=== PATIENT | female | born 1955 | race Caucasian/White ===

== ENCOUNTER → 2018-01-10 12:08 | Outpatient (CLI) | payer OTHER, SELFPAY ==
[2018-01-10 13:40] LABS: Hematocrit 36.3 % (37-47); Hemoglobin 11.2 g/dl (12.0-15.0); Mean Corp Hgb Conc 30.9 g/gl (32-36); Mean Corpuscular Hgb 24.6 pg (27.0-32.0); Mean Corpuscular Volume 79.6 fL (81-99); Mean Platelet Vol. 8.9 fl (6.2-12.0); Platelet Count 356 K/mm3 (150-450); RBC Distribution Width CV 16.6 % (11.6-14.6); RBC Distribution Width SD 47.6 fl (35.1-43.9); Red Blood Count 4.56 M/mm3 (4.2-5.4); White Blood Count 8.6 K/mm3 (4.4-11.0)
[2018-01-10 13:58] LABS: Scan Indicated on CBC? Y/N NO
== END ==
PROVIDERS: Physician Assistant Medical; Family Provider Family Medicine; PCP Family Medicine; Visit Provider Internal Medicine Cardiovascular Disease
DX: R07.9 Chest pain, unspecified (principal)
CPT/HCPCS: 36415; 85027

== ENCOUNTER → 2018-11-29 08:57 | Outpatient (CLI) | payer SELFPAY, OTHER ==
[2018-10-16 15:20] VITALS: BMI 23.1
--- NOTE | 2018-11-29 09:08 | BI_ITS ---
MAMMOGRAPHY - BILATERAL SCREENING REASON FOR EXAM: Female, 63 years old. Routine annual screening examination. PERTINENT HISTORY: Mother with breast cancer. TECHNIQUE: Digital bilateral breast naomy (3D mammographic acquisition) in the CC and MLO projections. 2-D mediolateral oblique (MLO) and craniocaudad (CC) views of both breasts were obtained. CAD: Full Field Digital Mammography with Computer Added Detection was performed. COMPARISON: Comparison is made with prior outside examination dated October 02, 2017 and September 03, 2014. FINDINGS: Breast Composition: The breasts are heterogeneously dense, which may obscure small masses. There are no dominant masses or suspicious calcifications. No other significant abnormalities are identified. There has been no significant change since the prior study. BI/SCREENING MAMM (CAD), BILAT IMPRESSION: Stable bilateral screening mammogram. Yearly follow-up mammogram recommended. (A) ASSESSMENT CATEGORY: BIRADS Category 1: Negative. A letter regarding these results will be sent to the patient by the facility within 30 days. Approximately 10% of breast cancers are not detected by mammography. A normal mammogram should not delay biopsy of a clinically suspicious abnormality. [id number] Electronically Signed: He Smith MD at 14:06 EST Tel [phone], Service support ,
== END ==
PROVIDERS: Family Provider Family Medicine; PCP Family Medicine; Visit Provider Obstetrics & Gynecology
DX: Z12.31 Encounter for screening mammogram for malignant neoplasm of breast (principal)
CPT/HCPCS: 77063; 77067

== ENCOUNTER → 2018-12-05 08:15 | Outpatient (CLI) | payer SELFPAY ==
[2018-10-16 15:20] VITALS: BMI 23.1
[2018-12-05 09:14] LABS: BUN 14 mg/dL (7-18); Creatinine, Serum 0.82 mg/dL (0.55-1.02); EST Glomerular Filtration Rate 75 mL/min (>60); Glucose 95 mg/dL (74-106)
[2018-12-05 09:15] LABS: Anion Gap 8 (5-15); BUN/Creat Ratio 17.1 RATIO (10-20); Calcium,Total 8.8 mg/dL (8.5-10.1); Chloride 105 mmol/L (98-107); Cholesterol 177 mg/dL (200); Est Glom Filt Rate - Afr Amer 91 mL/min (>60); High Density Lipoprotein 57 mg/dL; Potassium 3.7 mmol/L (3.5-5.1); Sodium Level 138 mmol/L (136-145); Thyroid Stim Hormone (TSH) 1.93 uIU/mL (0.358-3.74); Triglycerides 193 mg/dL; Very Low Density Lipoprotein 39 mg/dL (5-40)
[2018-12-05 11:03] LABS: Vitamin D,25 Hydroxy 35.8 ng/mL (29.95-100.01)
--- OUTSIDE RECORDS SUMMARY | 2019-02-08 15:16 | XMS RPT_ITS ---
:1955 Author Organization OHIP Support Name Relationship Address Phone R Unavailable Unavailable Unavailable DAGMAR MADRID Unavailable [address] + [place] [address] R Unavailable Unavailable Unavailable DGAMAR MADRID Unavailable [address] + [place] [address] R Unavailable Unavailable Unavailable DAGMAR MADRID Unavailable [address] + [place] [address] BUEMI Unavailable [address] + [place] [address] DAGMAR MADRID Unavailable [address] + [place] [address] BUEMI Unavailable [address] + [place] [address] DAGMAR MADRID Unavailable [address] [phone] [place] [address] BUEMI Unavailable [address] + [place] [address] DAGMAR MADRID Unavailable [address] [phone] [place] [address] BUEMI Unavailable [address] + [place] [address] KANE MADRIDN Unavailable [address] [phone] [place] [address] BUEMI Unavailable [address] + [place] [address] BUEMI Unavailable [address] + [place] [address] DAGMAR MADRID Unavailable [address] [phone] [place] [address] BUEMI Unavailable [address] + [place] [address] RALPH NOVOA Unavailable [address] + [place] [address] KANE MADRIDN Unavailable [address] [phone] [place] [address] Care Team Providers Name Role Phone SNOW ARAGON Attending Unavailable Snow Lehman Attending Unavailable Win, Kwan Primary Care Unavailable Win, Kwan Attending Unavailable Win, Kwan Referring Unavailable Win, Kwan Primary Care Unavailable Win, Kwan Attending Unavailable Win, Kwan Referring Unavailable Win, Kwan Primary Care Unavailable Jeremy, Sanford Attending Unavailable Win, Kwan Primary Care Unavailable Jeremy, Sanford Referring Unavailable Nurse, Standard Attending Unavailable Win, Kwan Referring Unavailable Win, Kwan Primary Care Unavailable Junaid Gibbs Attending Unavailable Win, Kwan Referring Unavailable Win, Kwan Primary Care Unavailable Alina Viera Attending Unavailable Mando Boyle Attending Unavailable Jeremy, Sanford Attending Unavailable Win, Kwan Referring Unavailable PROBLEMS PROBLEMS DATE TYPE CONDITION / CODE ATTENDING STATUS SOURCE 12/05/2018 Unknown Z00.00 - Encounter Kwan Win Active [place] for general adult [facility] examination Repository without abnormal findings / Z00.00(ICD-10) 10/16/2018 Unknown R00.2 - Sanford Luna Active [place] Palpitations / Community R00.2(ICD-10) Hospital Repository 07/10/2018 Active Unknown / SHAKEEL Active [facility]Unknown[facility] 02/07/2018 Unknown R07.9 - Chest Nurse, Standard Active [place] pain, unspecified Community / R07.9(ICD-10) Hospital Repository PROCEDURES PROCEDURES No Procedure Records FoundRESULTS RESULTS DEXA BONE DENSITY Observed: 12/09/2018 Status: F Source: [place] STUDY 9:12 AM [facility] REPOSITORY [facility] Imaging Services [address] [place] [address] Dexa Bone Density Study MR#: [id number] Acct: [id number] Name: DALIA MADRID Rep #: [id number] : 1955 F 63 From: He Smith MD PCP: Kwan Win MD Status: REG CLI Study: Dexa Bone Density Study Date of Exam: 12/09/18 Exam# [id number] Ordering Dr: Kwan Win MD STUDY: DUAL ENERGY X-RAY ABSORPTIOMETRY / DXA REASON FOR EXAM: Female, 63 years old. The patient is postmenopausal. Loss of height. TECHNIQUE: Bone Mineral Density (BMD) measurements of lumbar spine and bilateral hips were obtained. COMPARISON: None. FINDINGS: Lumbar Spine (L1-L4): g/cm2 (0.927) / T-score (-2.1) / Z-score (-0.8) Findings are suggestive of osteopenia with a high fracture risk. Left Femur Total: g/cm2 (0.873) / T-score (-1.1) / Z- score (0.1) Left Femoral Neck: g/cm2 (0.801) / T-score (-1.7) / Z- score (-0.4) Right Femur Total: g/cm2 (0.884) / T-score (-1.0) / Z- score (0.0) Right Femoral Neck: g/cm2 (0.853) / T-score (-1.3) / Z-score (-0.1) BD/Dexa Bone Density Study IMPRESSION: The patient is considered osteopenic as outlined below according to World Mo Organization (WHO) criteria with a moderate fracture risk. Reference Information: The T-score is the number of standard deviations above or below the standard which is normal for young adults at their peak bone mineral density. The World Health Organization (WHO) interprets the T-scores as follows: Above -1 Normal bone density Between -1 and -2.5 Osteopenia Equal to / or below -2.5 Osteoporosis As a practical clinical guideline, osteopenia may be graded as follows: Mild -1 through -1.5 Moderate -1.6 through -2.0 Severe -2.1 through -2.4 The Z-score is the number of standard deviations above or below age-matched controls. A Z-score of less than -1.5 would be considered abnormal. References: 1. NIH Osteoporosis and Related Bone Diseases http://www.osteo.org 2. International Society for Clinical Densitometry http://www.iscd.org 3. National Osteoporosis Foundation http://www.nof.org Electronically Signed: He Smith MD at 11:20 EST Tel [phone], Service support , CC: Kwan Win MD Gizzard Peeler: Signed BASIC METABOLIC Collected: 12/05/2018 Status: F Source: [place] PROFILE (BMP) 8:20 AM [facility] REPOSITORY TYPE CODE TESTS RESULT OUT OF RANGE REFERENCE UNITS LAB L501.0100 74-106 mg/dL Normal GLU 95 Result Comment: Please note revised GLUCOSE reference range effective 2017. LAB L501.1000 7-18 mg/dL Normal BUN 14 LAB L501.1100 0.55-1.02 mg/dL Normal CREAT,SERUM 0.82 Result Comment: The validity of the calculated GFR AND GFRAA in patients over 70 years has not been determined. Clinical correlation is essential. LAB L501.1110 >60 mL/min Normal EST GFR 75 Result Comment: Non- GFR Calc LAB L501.1115 >60 mL/min Normal EST GFR - AA 91 Result Comment: GFR Calc LAB L501.1300 10-20 RATIO Normal BUN/CRE 17.1 LAB L501.2200 8.5-10.1 mg/dL CA Normal 8.8 LAB L501.5300 136-145 mmol/L NA Normal 138 LAB L501.5600 3.5-5.1 mmol/L K Normal 3.7 LAB L501.5900 98-107 mmol/L CL Normal 105 LAB L501.6100 21.0-32.0 mmol/L Normal CO2 25.0 LAB L501.6200 5-15 Normal GAP 8 Performed By: #### L500.2500, L500.4100, L501.9520 #### [facility] [address] [place], [address] LIPID PROFILE Collected: 12/05/2018 Status: F Source: [place] 8:20 AM [facility] REPOSITORY TYPE CODE TESTS RESULT OUT OF RANGE REFERENCE UNITS LAB L501.4900 200 mg/dL Normal CHOL 177 Result Comment: <200 mg/dL Desirable 200-240 mg/dL Borderline >240 mg/dL High Risk LAB L501.5000 mg/dL Normal TRIG 193 Result Comment: The drugs N-Acetylcysteine and Metamizole may falsely depress this assay. Serum Triglycerides Reference Interval Normal <150 mg/dL Borderline high 150 - 199 mg/dL High 200 - 499 mg/dL Very High > or = 500 mg/dL LAB L501.6400 mg/dL Normal HDL 57 Result Comment: The drugs N-Acetylcysteine and Metamizole may falsely depress this assay. Reference Range HDL <40 mg/dL Low HDL Cholesterol HDL >or= 60 mg/dL High HDL Cholesterol LAB L501.6500 0-130 mg/dL Normal LDL 81 LAB L501.6600 5-40 mg/dL Normal VLDL 39 Performed By: #### L500.2500, L500.4100, L501.9520 #### [facility] [address] [place], [address] THYROID STIM HORMONE Collected: 12/05/2018 Status: F Source: [place] (TSH) 8:20 AM [facility] REPOSITORY TYPE CODE TESTS RESULT OUT OF RANGE REFERENCE UNITS LAB L501.9520 0.358-3.74 uIU/mL Normal TSH 1.93 Performed By: #### L500.2500, L500.4100, L501.9520 #### [facility] [address] [place], [address] VITAMIN D,25 HYDROXY Collected: 12/05/2018 Status: F Source: [place] 8:20 AM [facility] REPOSITORY TYPE CODE TESTS RESULT OUT OF RANGE REFERENCE UNITS LAB L506.1000 29.95-100.01 ng/mL Normal Vitamin D 35.8 25-OH Result Comment: Vitamin D 25(OH) Status Range Deficiency <20 ng/mL (50nmol/L) Insuffciency 20 - 30 ng/mL (50 - 75 nmol/L) Sufficiency 30 - 100 ng/mL (75 - 250 nmol/L) Toxicity >100 ng/mL (>250 nmol/L) Performed By: #### L506.1000 #### [facility] [address] [place], [address] SCREENING MAMM (CAD), Observed: 11/29/2018 Status: F Source: [place] BILAT 9:08 AM [facility] REPOSITORY [facility] Imaging Services [address] [place] [address] SCREENING MAMM (CAD), BILAT MR#: [id number] Acct: [id number] Name: DALIA MADRID Rep #: [id number] : 1955 F 63 From: He Smith MD PCP: Kwan Win MD Status: REG CLI Study: SCREENING MAMM (CAD), BILAT Date of Exam: 11/29/18 Exam# [id number] Ordering Dr: Snow Neal MD MAMMOGRAPHY - BILATERAL SCREENING REASON FOR EXAM: Female, 63 years old. Routine annual screening examination. PERTINENT HISTORY: Mother with breast cancer. TECHNIQUE: Digital bilateral breast naomy (3D mammographic acquisition) in the CC and MLO projections. 2-D mediolateral oblique (MLO) and craniocaudad (CC) views of both breasts were obtained. CAD: Full Field Digital Mammography with Computer Added Detection was performed. COMPARISON: Comparison is made with prior outside examination dated October 02, 2017 and September 03, 2014. FINDINGS: Breast Composition: The breasts are heterogeneously dense, which may obscure small masses. There are no dominant masses or suspicious calcifications. No other significant abnormalities are identified. There has been no significant change since the prior study. BI/SCREENING MAMM (CAD), BILAT IMPRESSION: Stable bilateral screening mammogram. Yearly follow-up mammogram recommended. (A) ASSESSMENT CATEGORY: BIRADS Category 1: Negative. A letter regarding these results will be sent to the patient by the facility within 30 days. Approximately 10% of breast cancers are not detected by mammography. A normal mammogram should not delay biopsy of a clinically suspicious abnormality. [id number] Electronically Signed: He Smith MD at 14:06 EST Tel [phone], Service support , CC: Snow Lehman MD; Kwan Win MD Gizzard Peeler: Signed CARDIOLOGY VISIT Observed: 10/16/2018 Status: F Source: [place] REPORT 3:35 PM [facility] REPOSITORY [facility] [address] [place] [address] OFFICE VISIT Date of Service: 10/16/18 MR#: [id number] Acct: [id number] Name: DALIA MADRID Rep #: [id number] : 1955 Provider: Sanford Luna MD Age/Sex: 62/F Location: [facility] Status: Signed HPI HPI Chief Complaint: Follow up Details: DALIA MADRID, is a 62 F who presents to the office today for a follow-up visit. She is a lady with a history of hypertension palpitations and no significant obstructive coronary disease. She had a negative stress echocardiogram as well as a normal left ventricular systolic function. She tells me that she has been recently diagnosed with irritable bowel syndrome and has had to alter her diet significantly. She has had no neck arm or jaw discomfort suggest angina. Her physical exam here today demonstrates clear lung woods regular rate and rhythm and no pedal edema. Intake Vital Signs10/16/18 Height 5 ft 5 in 10/16/18 Weight: 139 lb 10/16/18 Body Mass Index (BMI) 23.1 10/16/18 Blood Pressure 128/84 H 10/16/18 Blood Pressure Location Lt brachial Intake Visit Reasons: 6 M FU Director Of Math Required: No Accompanied by: NONE Is patient in pain?: No Allergies Sulfa (Sulfonamide Antibiotics) Allergy (Verified 10/16/18 15:21) Unknown sulfamethoxazole [From Bactrim] Allergy (Verified 10/16/18 15:21) Unknown trimethoprim [From Bactrim] Allergy (Verified 10/16/18 15:21) Unknown erythromycin base Adverse Reaction (Severe, Verified 10/16/18 15:21) Unknown Medications Albuterol IH (ProAir) [Proair Hfa] 2 puff INHALATION Q6H PRN PRN 10/20/13 [History Confirmed 10/16/18] Dulera 100 Mcg/5 Mcg Inhaler 1 puff INHALATION BID 10/20/13 [History Confirmed 10/16/18] Homopathic Drops 1 drp PO DAILY 08/16/17 [History Confirmed 10/16/18] Ibuprofen [Motrin] 400 mg PO Q6H PRN PRN 08/16/17 [History Confirmed 10/16/18] Sodium Chloride [Saline Nasal Mist] 126 ml NS BID 08/16/17 [History Confirmed 10/16/18] Usana 5 tab PO BID 08/16/17 [History Confirmed 10/16/18] famotidine 40 mg tablet 40 mg PO QDAY #30 tab 05/30/18 [Rx Confirmed 10/16/18] Lactobacillus #2-Bifidobacter #1-S. therm 112.5 billion cell capsule 1 cap PO DAILY 10/16/18 [History Confirmed 10/16/18] PFSH Medical History Irritable bowel (Chronic) H/O: hysterectomy (Resolved) Palpitations (Chronic) Chest pain (Acute) Syncope and collapse (Acute) Surgical History History of nasal surgery (Resolved) Family History Father CAD (coronary artery disease) Mother CAD (coronary artery disease) Hx CABG Atrial fibrillation Social History Smoking Status: Never smoker alcohol intake: never substance use type: does not use caffeine: Yes Type: coffee Number of servings: 2 what type of physical activity do you participate in: walking frequency: 3-4 times per week duration: 15-30 minutes/day seatbelt use: always do you feel safe at home: Yes ROS Const Const: Negative for fatigue, weakness, night sweats, excessive sweating, frequent falls, headache(s) or daytime sleepiness Eyes Eyes: Negative for loss of peripheral vision, transient loss of vision, blind spots, double vision or blurry vision ENT ENT: Negative for headache(s), dizziness, balance problems, Nosebleed/epistaxis, tongue swelling or lip swelling Cardio Chest Pain: No Palpitations: No Edema: None Muscle aches with walking: None Resp Respiratory: Negative for SOB at rest, SOB orthopnea\SOB lying down, Cough, paroxysmal nocturnal dyspnea or SOB with activity GI GI: Negative nausea, vomiting, heartburn, black,tarry stools or bright, red blood in stools : Negative for hematuria Musc Musc: Negative for balance problems, muscle aches/ myalgia, muscle weakness or joint pain Skin Skin: Negative non-healing lesions, unusual bruising or rash Neuro Neuro: Negative for weakness, frequent falls, headache(s), double vision, dizziness, lightheadedness, orthostatic symptoms, blurry vision or lack of coordination Otis Hematologic/Lymphatic: Negative for easy bruising or easy bleeding Endo Endo: Negative for fatigue, excessive sweating, cold intolerance, heat intolerance, increased thirst/drinking or hair loss Psych Psych: Negative for anxiety or depression Allergy Allergy/Immunology: Negative for throat swelling, Negative for tongue swelling, Negative for hives, Negative for rash, Negative for lip swelling Cardiology Exam Const Appearance: cooperative, healthy appearing, well developed, well groomed and no acute distress Nutritional Appearance: well nourished and average body habitus Orientation: alert, awake and oriented x3 Head Head: normal to inspection, normocephalic and atraumatic Ears: hearing grossly normal bilaterally and external ears normal Nose: external nose normal, nasal mucous membranes and turbinates normal, nares normal, septum normal, no nasal discharge Face and Sinus: face symmetric Mouth: oral mucosae normal, tongue normal, oropharynx normal and moist mucous membranes Teeth and gingiva: dentition normal Throat: posterior oropharynx normal, tonsils normal and uvula midline Eyes General: appearance normal, both eyes and all related structures Eyelids: eyelids normal Conjunctivae: conjunctivae normal Pupils: PERRL, normal by confrontation and accommodation normal EOM: EOM intact bilaterally Neck Neck: normal visual inspection, trachea midline and no JVD JVD: +5 Carotids: normal carotid upstroke and bounding pulses Chest Chest inspection: normal inspection of the chest, symmetric chest movement and normal respiratory effort Auscultation: Bilateral: Clear to Auscultation Cardio Palpation: normal PMI Rate: regular rate Rhythm: regular rhythm Heart sounds: S1 normal, S2 normal and normal, physiologic split S2; negative rub, gallop or murmur GI GI: normal to inspection, soft, no hepatosplenomegaly and bowel sounds present Neuro General: alert, awake, oriented x3, no focal sensory deficit, gait normal and moves all extremities Skin Skin: no rashes or lesions noted Extremities Pulses: Normal: Right Femoral Pulse, Left Femoral Pulse, Right Dorsalis Pedis Pulse, Left Dorsalis Pedis Pulse, Right Posterior Tibial Pulse, Left Posterior Tibial Pulse, Right Radial Pulse, Left Radial Pulse Lower Extremity Edema: None: Bilateral Musculoskel Musculoskeletal: No joint tenderness Psych Psychological: normal affect Assessment AND Plan 1. Palpitations R00.2 Plan She does have a history of palpitations which appears to be much better now. You do remember that she was bereaved but she appears to be handling that much better now. At this time I will recommend that we see how on an as-needed basis. Plan Detail Other Medications New: Follow Up prn Coding Level of Care Code Off vis,est,level 3 Diagnoses Palpitations R00.2 Coding Level of Care Code Off vis,est,level 3 Diagnoses Palpitations R00.2 10/16/18 1535 <Electronically signed by Sanford Luna MD> Date Sanford Luna MD Cosigner Signature: Date (if applicable) CC: Kwan Win MD CNOV Observed: 07/10/2018 Status: COMPLETED Source: [place] 11:20 AM [facility] RE[facility] Office Visit (WOOB) DALIA MADRID ([id number]) 1955 F Date Time Provider Department 07/10/18 11:20 AM SNOW ARAGON During your visit today, we recorded the following information about you: Blood pressure Weight 120/60 64.4 kg Snow Lehman MD 07/10/2018 1:10 PM Signed Table Top Tile Setter offered: Patient declines. Dalia Madrid is a 62 year old female who presents for vaginal concerns. Reports had intercourse for the first time since having hysterectomy 08/2017- pt reports after felt pressure, pain, and had two spot of blood. Pt reports mild dysuria but no other symptoms. Pt reports itching on external vagina. PAST MEDICAL HISTORY Diagnosis Date - Asthma PAST SURGICAL HISTORY Procedure Laterality Date - COLONOSCOPY - CYSTOSCOPY 08/22/2017 - PAST SURGICAL HISTORY OF nasal surgery - REMOVAL OF OVARY/TUBE(S) Bilateral 08/22/2017 Salpingo-oophorectomy - REMOVAL OF TONSILS,<12 Y/O Tonsillectomy - VAGINAL HYSTERECTOMY 08/22/2017 [facility] FAMILY HISTORY Problem Relation Age of Onset - Heart Mother valve replacement - Breast Cancer Paternal Grandmother Social History Marital status: Spouse name: Dagmar Years of education: 12 Number of children: 1 Occupational History Occupation Employer Comment [employer] Social History Main Topics Smoking status: Never Smoker Smokeless tobacco: Never Used Alcohol use: No Drug use: No Sexual activity: Yes Partners with: Male Current Outpatient Prescriptions: ibuprofen (MOTRIN) 600 mg tablet Take 1 tablet by mouth every 6 hours as needed. FOR PAIN. CALCIUM CARBONATE/MAG CARB (MAGNEBIND 200 ORAL) Take by mouth. ibuprofen (MOTRIN) 600 mg tablet Take 1 tablet by mouth every 6 hours as needed for Pain. (Patient not taking: Reported on 09/04/2017) oxyCODONE-acetaminophen (PERCOCET) 5-325 mg tablet Take 1 tablet by mouth every 4 hours as needed for Pain. (Patient not taking: Reported on 09/04/2017) simethicone, chewable (MYLICON) 80 mg chewable tablet Take 1 tablet by mouth every 6 hours as needed. (Patient not taking: Reported on 09/04/2017) nortriptyline (PAMELOR) 10 mg capsule Take 10 mg by mouth daily at bedtime. aspirin, enteric coated (ASPIRIN, ENTERIC COATED) 81 mg EC tablet Take 81 mg by mouth once daily. No current facility-administered medications for this visit. Allergies As of Date: 07/10/2018 Allergen Noted Reaction SULFA (SULFONAMIDE ANTIBIOTICS) 04/27/2015 Unknown Fully Assessed 10/02/2017 REVIEW OF SYSTEMS Abdomen: no pain Bladder: No gross hematuria, urinary frequency, urinary urgency, or incontinence.. Expanded ROS: GENERAL: No weight loss, malaise or fevers Allergies and current medication updated:Yes EXAM: BP 120/60 Wt 142 lb (64.4kg) GENERAL: pleasant, female in no apparent distress HEENT: Normocephalic and atraumatic NECK: full range of motion DERMATOLOGY: Normal and without lesions ABDOMEN: soft, non-tender and no masses PELVIC: external genitalia normal, normal Bartholin's glands, urethra, [place]'s glands, no vulvar lesions, good vaginal support, physiologic discharge present, normal appearing perineal body and perianal region, cervix surgically absent, atrophic changes NEURO: alert and oriented x3,exam grossly non-focal EXTREMITIES: normal ASSESSMENT AND PLAN: Encounter Diagnosis ICD-10-CM 1. Dysuria R30.0 UA DIP B/O 2. Postmenopausal atrophic vaginitis N95.2 3. Vaginal irritation N89.8 4. Lotrisone PRN for external irritation 5. Vulvar hygiene reviewed, vaginal lubricants reviewed 6. F/u as scheduled Snow Lehman MD Referring Provider: SELF [200] Allergies As of Date: 07/10/2018 Noted Allergy Reaction SULFA (SULFONAMIDE ANTIBIOTICS) 04/27/2015 16 - Unknown Date Reviewed: 07/10/2018 Reviewed by: Berenice Linares Ma - Fully Assessed Reason for Visit: Vaginal Bleeding [203] Primary Visit Diagnosis:Postmenopausal atrophic vaginitis [N95.2] Other Visit Diagnoses:Dysuria [R30.0] Vaginal irritation [N89.8] Order(s):clotrimazole-betamethasone (LOTRISONE) creamApply 1 application to affected area twice daily.Disp: 15 gRfl: 0 UA DIP B/O [[id number]] Order #: [id number] Prescriptions as of 07/10/2018 Sig: CLOTRIMAZOLE-BETAMETHASONE 1 * Apply 1 application to affect* IBUPROFEN 600 MG TABLET Take 1 tablet by mouth every * MAGNEBIND 200 ORAL Take by mouth. IBUPROFEN 600 MG TABLET Take 1 tablet by mouth every * Patient not taking: Reported on 09/04/2017 OXYCODONE-ACETAMINOPHEN 5 MG-* Take 1 tablet by mouth every * Patient not taking: Reported on 09/04/2017 SIMETHICONE 80 MG CHEWABLE TA* Take 1 tablet by mouth every * Patient not taking: Reported on 09/04/2017 NORTRIPTYLINE 10 MG CAPSULE Take 10 mg by mouth daily at * ASPIRIN 81 MG TABLET,DELAYED * Take 81 mg by mouth once justine* Problem List As Of Date 07/10/2018 Noted Resolved Cervical abrasion [S37.69XA] INVALID FOR* Prescriptions ordered this encounter Disp Refills Start End CLOTRIMAZOLE-BETAMETHASONE 1 %-0.05 * 15 g 0 07/10/2018 Route: TOPICAL Sig: Apply 1 application to affected area twice daily. Encounter Status:Closed by SNOW JIMENEZ MD on 07/10/18 PROGRESS Observed: 07/10/2018 Status: COMPLETED Source: [place] 11:15 AM [facility] REPOSITORY [facility]NO ID: [id number] Author: Snow Jimenez Service: (none) Author Type: Physician Type: Progress Notes Filed: 07/10/2018 1:10 PM Note Text: Table Top Tile Setter offered: Patient declines. Dalia Madrid is a 62 year old female who presents for vaginal concerns. Reports had intercourse for the first time since having hysterectomy 08/2017- pt reports after felt pressure, pain, and had two spot of blood. Pt reports mild dysuria but no other symptoms. Pt reports itching on external vagina. PAST MEDICAL HISTORY Diagnosis Date - Asthma PAST SURGICAL HISTORY Procedure Laterality Date - COLONOSCOPY - CYSTOSCOPY 08/22/2017 - PAST SURGICAL HISTORY OF nasal surgery - REMOVAL OF OVARY/TUBE(S) Bilateral 08/22/2017 Salpingo-oophorectomy - REMOVAL OF TONSILS,<12 Y/O Tonsillectomy - VAGINAL HYSTERECTOMY 08/22/2017 [facility] FAMILY HISTORY Problem Relation Age of Onset - Heart Mother valve replacement - Breast Cancer Paternal Grandmother Social History Marital status: Spouse name: Dagmar Years of education: 12 Number of children: 1 Occupational History Occupation Employer Comment [employer] Social History Main Topics Smoking status: Never Smoker Smokeless tobacco: Never Used Alcohol use: No Drug use: No Sexual activity: Yes Partners with: Male Current Outpatient Prescriptions: ibuprofen (MOTRIN) 600 mg tablet Take 1 tablet by mouth every 6 hours as needed. FOR PAIN. CALCIUM CARBONATE/MAG CARB (MAGNEBIND 200 ORAL) Take by mouth. ibuprofen (MOTRIN) 600 mg tablet Take 1 tablet by mouth every 6 hours as needed for Pain. (Patient not taking: Reported on 09/04/2017) oxyCODONE-acetaminophen (PERCOCET) 5-325 mg tablet Take 1 tablet by mouth every 4 hours as needed for Pain. (Patient not taking: Reported on 09/04/2017) simethicone, chewable (MYLICON) 80 mg chewable tablet Take 1 tablet by mouth every 6 hours as needed. (Patient not taking: Reported on 09/04/2017) nortriptyline (PAMELOR) 10 mg capsule Take 10 mg by mouth daily at bedtime. aspirin, enteric coated (ASPIRIN, ENTERIC COATED) 81 mg EC tablet Take 81 mg by mouth once daily. No current facility-administered medications for this visit. Allergies As of Date: 07/10/2018 Allergen Noted Reaction SULFA (SULFONAMIDE ANTIBIOTICS) 04/27/2015 Unknown Fully Assessed 10/02/2017 REVIEW OF SYSTEMS Abdomen: no pain Bladder: No gross hematuria, urinary frequency, urinary urgency, or incontinence.. Expanded ROS: GENERAL: No weight loss, malaise or fevers Allergies and current medication updated:Yes EXAM: BP 120/60 Wt 142 lb (64.4kg) GENERAL: pleasant, female in no apparent distress HEENT: Normocephalic and atraumatic NECK: full range of motion DERMATOLOGY: Normal and without lesions ABDOMEN: soft, non-tender and no masses PELVIC: external genitalia normal, normal Bartholin's glands, urethra, [place]'s glands, no vulvar lesions, good vaginal support, physiologic discharge present, normal appearing perineal body and perianal region, cervix surgically absent, atrophic changes NEURO: alert and oriented x3,exam grossly non-focal EXTREMITIES: normal ASSESSMENT AND PLAN: Encounter Diagnosis ICD-10-CM 1. Dysuria R30.0 UA DIP B/O 2. Postmenopausal atrophic vaginitis N95.2 3. Vaginal irritation N89.8 4. Lotrisone PRN for external irritation 5. Vulvar hygiene reviewed, vaginal lubricants reviewed 6. F/u as scheduled Snow Lehman MD CARDIOLOGY VISIT Observed: 02/27/2018 Status: F Source: [place] REPORT 1:36 PM [facility] RE[facility]IT[facility] [address] [place] [address] OFFICE VISIT Date of Service: 02/27/18 MR#: [id number] Acct: [id number] Name: DALIA MADRID Rep #: [id number] : 1955 Provider: GERMANIA Gibbs Age/Sex: 62/F Location: [facility] Status: Signed HPI HPI Details: DALIA MADRID, is a 62 F who presents to the office today for a cardiovascular outpatient follow-up. She has a previous history of palpitations, vasovagal syncope in January 2015 and April 2017, and atypical chest discomfort. After last office visit she underwent a stress echocardiogram, which showed a normal LV systolic function was negative for myocardial ischemia. Patient contact our office in December 2017 with atypical signs of chest pain. She underwent laboratory work and EKG. She was started on antacid medication after this. Pt. states her mom prior to episode of atypical chest pain in December. She will be retiring soon. Pt. denies chest, left arm, jaw, or neck discomfort. Her exercise tolerance is stable. Pt. denies symptoms of CHF, palpitations, lightheadedness, dizziness, near syncope, or syncopal episodes. Pt. denies edema or claudication issues. Pt. denies orthopnea, PND, fever, chills, blood in urine, blood in stool, myalgia, or unexplainable fatigue. She will be undergoing a sleep study per Dr. Caruso. Intake Vital Signs02/27/18 Height 5 ft 5 in 02/27/18 Weight: 139 lb 02/27/18 Body Mass Index (BMI) 23.1 02/27/18 Blood Pressure 138/84 Intake Visit Reasons: overdue for f/up Allergies Sulfa (Sulfonamide Antibiotics) Allergy (Verified 02/27/18 09:51) Unknown sulfamethoxazole [From Bactrim] Allergy (Verified 02/27/18 09:51) Unknown trimethoprim [From Bactrim] Allergy (Verified 02/27/18 09:51) Unknown erythromycin base Adverse Reaction (Severe, Verified 02/27/18 09:51) Unknown Medications Albuterol IH (ProAir) [Proair Hfa] 2 puff INHALATION Q6H PRN PRN 10/20/13 [History Confirmed 02/27/18] Dulera 100 Mcg/5 Mcg Inhaler 1 puff INHALATION BID 10/20/13 [History Confirmed 02/27/18] Homopathic Drops 1 drp PO DAILY 08/16/17 [History Confirmed 02/27/18] Ibuprofen [Motrin] 400 mg PO Q6H PRN PRN 08/16/17 [History Confirmed 02/27/18] Nortriptyline HCl [Pamelor] 10 mg PO QHS 08/16/17 [History Confirmed 02/27/18] Sodium Chloride [Saline Nasal Mist] 126 ml NS BID 08/16/17 [History Confirmed 02/27/18] Usana 5 tab PO BID 08/16/17 [History Confirmed 02/27/18] famotidine 40 mg tablet 40 mg PO QDAY #30 tab 01/10/18 [Rx Confirmed 02/27/18] PFSH Medical History Palpitations (Chronic) Chest pain (Acute) Syncope and collapse (Acute) Surgical History History of nasal surgery (Resolved) H/O: hysterectomy (Resolved) Family History Father CAD (coronary artery disease) Mother CAD (coronary artery disease) Hx CABG Atrial fibrillation Social History Smoking Status: Never smoker alcohol intake: never substance use type: does not use caffeine: Yes Type: coffee Number of servings: 2 what type of physical activity do you participate in: walking frequency: 3-4 times per week duration: 15-30 minutes/day seatbelt use: always do you feel safe at home: Yes ROS Const Const: Negative for fatigue, weakness, body ache, fever(s) or chills ENT ENT: Negative for dizziness Cardio Chest Pain: No Palpitations: No Edema: None Muscle aches with walking: None Resp Respiratory: Negative for SOB with activity, SOB at rest, SOB orthopnea\SOB lying down or paroxysmal nocturnal dyspnea GI GI: Negative nausea, black,tarry stools, bright, red blood in stools or vomiting blood/hematemesis : Negative for hematuria or frequent nighttime urination/ nocturia Musc Musc: Negative for muscle aches/ myalgia Neuro Neuro: Negative for weakness, dizziness, lightheadedness, near syncope, syncope or orthostatic symptoms Endo Endo: Negative for fatigue Cardiology Exam Const Appearance: cooperative, healthy appearing, comfortable and no acute distress Orientation: alert, awake and oriented x3 Head Head: normal to inspection Mouth: oral mucosae normal Neck Neck: no JVD and normal visual inspection Carotids: normal carotid upstroke Chest Chest inspection: normal inspection of the chest and normal respiratory effort Auscultation: Bilateral: Clear to Auscultation Cardio Rate: regular rate Rhythm: regular rhythm Heart sounds: S1 normal and S2 normal; negative rub or gallop GI GI: normal to inspection Neuro General: alert, awake, oriented x3 and CN's II-XI intact bilaterally Skin Skin: no rashes or lesions noted Extremities Pulses: Normal: Right Posterior Tibial Pulse, Left Posterior Tibial Pulse, Right Radial Pulse, Left Radial Pulse Lower Extremity Edema: None: Bilateral Psych Psychological: normal affect Supplemental Info Stress echocardiogram from October 2016 showed a peak exercise, upsloping ST changes which do not meet criteria for ischemia at 87% of MPHR and 10.1 MET S, no arrhythmia, no clinical angina noted, and ejection fraction increased from 55-65%. Echocardiogram from October 2016 showed estimated ejection fraction 50%, mild tricuspid valve insufficiency, and RVSP of 26 mmHg. Holter monitor from January 2016 showed average heart rate of 92 bpm, minimum heart rate is 66 bpm, and maximum heart rate 130 bpm, no ventricular tachycardia noted,no atrial fibrillation noted, and patient's symptoms of palpitations and dizziness did not correlate with scan. Assessment AND Plan 1. Palpitations R00.2 Plan - SHIV Aragon There has not been any recurrence of this. We will continue to monitor this. 2. Syncope and collapse R55 Plan - SHIV Aragon There has not been any recurrence of this. Previous episodes of syncope appear to be vasovagal related. She was reminded to remain hydrated, avoid standing in one spot for long periods, and consider wearing compression stockings. She is agreeable to compression stockings. We will continue to monitor this. 3. Atypical chest pain R07.89 Plan - SHIV Aragon Stress echocardiogram from October 2016 was negative for stress-induced myocardial ischemia and showed a preserved ejection fraction. Patient denies any chest pain. She states that since initiating Pepcid her symptoms resolved. She was instructed to contact our office if symptoms change. We will continue to monitor this. 4. Non-rheumatic tricuspid valve insufficiency I36.1 Plan - SHIV Araogn Echocardiogram from October 2016 showed mild tricuspid valve insufficiency with an RVSP of 26 mmHg. Patient denies any shortness of breath or activity intolerance. We will continue to monitor this through history, exam, and repeat echocardiogram as needed. Plan Detail Additional Comments - SHIV Aragon Discussed the above patient with Dr. Luna, he agrees with the plan of care. Thank you for allowing us to participate in the patients plan of care, if you have any questions please do not hesitate to call. This note was generated using a voice recognition system and there may be incorrect words, spelling or punctuation that were not noted when reviewing the office note prior to saving. 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) Coding Level of Care Code Off vis,est,level 3 Diagnoses Palpitations R00.2 Syncope and collapse R55 Atypical chest pain R07.89 Non-rheumatic tricuspid valve insufficiency I36.1 Coding Level of Care Code Off vis,est,level 3 Diagnoses Palpitations R00.2 Syncope and collapse R55 Atypical chest pain R07.89 Non-rheumatic tricuspid valve insufficiency I36.1 02/27/18 1146 <Electronically signed by Junaid CHANEY> Date Junaid CHANEY 02/27/18 1336<Electronically signed by Sanford Luna MD> Cosigner Signature: Date (if applicable) Sanford Luna MD CC: Kwan Win MD OFFICE VISIT REPORT Observed: 01/13/2018 Status: F Source: [place] 2:00 PM [place] [id number] [id number] OFFICE VISIT Date of Service: 01/10/18 MR#: [id number] Acct: [id number] Patient: DALIA MADRID Rep #: [id number] : 1955 Provider: Sulema Nurse RN Age/Sex: 62/F Location: [facility] Status: Signed Intake Intake Visit Reasons: Chest pain Allergies Sulfa (Sulfonamide Antibiotics) Allergy (Verified 08/16/17 15:27) Unknown sulfamethoxazole [From Bactrim] Allergy (Verified 08/16/17 15:27) Unknown trimethoprim [From Bactrim] Allergy (Verified 08/16/17 15:27) Unknown Medications Albuterol IH (ProAir) [Proair Hfa] 2 puff INHALATION Q6H PRN PRN 10/20/13 [History Confirmed 08/16/17] Dulera 100 Mcg/5 Mcg Inhaler 1 puff INHALATION BID 10/20/13 [History Confirmed 08/16/17] Multivitamins,Ther W-Minerals [Multivitamin With Minerals] 1 tab PO DAILY 10/20/13 [History Confirmed 08/16/17] Aspirin [Aspirin EC] 81 mg PO DAILY 08/16/17 [History Confirmed 08/16/17] Homopathic Drops 1 drop PO DAILY 08/16/17 [History Confirmed 08/16/17] Ibuprofen [Motrin] 400 mg PO Q6H PRN PRN 08/16/17 [History Confirmed 08/16/17] Nortriptyline HCl [Pamelor] 10 mg PO QHS 08/16/17 [History Confirmed 08/16/17] Sodium Chloride [Saline Nasal Mist] 126 ml NS BID 08/16/17 [History Confirmed 08/16/17] Usana 5 tab PO BID 08/16/17 [History Confirmed 08/16/17] famotidine 40 mg tablet 40 mg PO QDAY #30 tab 01/10/18 [Rx] Assessment AND Plan 1. Chest pain R07.9 Orders Orders: Nursing Note Patient here for ekg: sinus tach, rate 104. Eliz compared with ekg done in April 2017, looks the same. HGB today 11.2 today and labs and ekg being sent to Dr. Win. Pt notified to start Pepcid 40 mg po tonight, RX was sent to [facility]. 01/13/18 1400 <Electronically signed by Eliz AHUJA> Date Eliz AHJUA Cosigner Signature: Date (if applicable) CC: Mayuri Latif CBC-COMPLETE BLOOD CNT Collected: 01/10/2018 Status: F Source: [place] NO DIFF 1:22 PM [facility] REPOSITORY TYPE CODE TESTS RESULT OUT OF RANGE REFERENCE UNITS LAB L100.1000 4.4-11.0 K/mm3 Normal WBC 8.6 LAB L100.1200 4.2-5.4 M/mm3 Normal RBC 4.56 LAB L100.1300 12.0-15.0 g/dl Low HGB 11.2 LAB L100.1400 37-47 % Low HCT 36.3 LAB L100.1500 81-99 fL Low MCV 79.6 LAB L100.1600 27.0-32.0 pg Low MCH 24.6 LAB L100.1700 32-36 g/gl Low MCHC 30.9 LAB L100.1810 11.6-14.6 % High RDW CV 16.6 LAB L100.1820 35.1-43.9 fl High RDW SD 47.6 LAB L100.1900 150-450 K/mm3 Normal PLT 356 LAB L100.2000 6.2-12.0 fl Normal MPV 8.9 Performed By: #### L100.0500 #### [facility] [address], [address] ALLERGIES ALLERGIES DATE TYPE / CODE NAME / CODE REACTION SEVERITY SOURCE 10/16/2018 Drug Sulfa (Sulfonamide Unknown Unknown [facility]/416 Antibiotics)/E59113 Community 542880[facility] 10/16/2018 Drug erythromycin Unknown SV [facility]/416 base/[id number](RXN Community 835925([facility] ED CT) Repository 10/16/2018 Drug sulfamethoxazole/F0 Unknown Unknown [facility]/416 45892380(RXNORM) Community 911876([facility] ED CT) Repository 10/16/2018 Drug trimethoprim/N58941 Unknown Unknown [facility]/416 2873(RXNORM) Community 699022([facility] ED CT) Repository 04/27/2015 Drug SULFA (SULFONAMIDE UNKNOWN [facility] Class/71587 ANTIBIOTICS) Main [place] 1003(SNOMED Repository CT) ENCOUNTERS ENCOUNTERS ADMIT/DISCHARGE ACCOUNT ADMITTING ENCOUNTER LOCATION SOURCE NUMBER CLASS 12/09/2018 [id number] Ambulatory [facility] ing:OPBD Repository 12/05/2018 [id number] [facility] ing:LAB Repository 11/29/2018 [id number] [facility] ing:OPBI Repository 10/16/2018/10/16/20 [id number] Ambulatory BMSBuilding:B [place] 18 [facility] Hospital Repository 07/10/2018/07/11/20 [id number] Ambulatory [address] Repository 02/27/2018/02/28/20 [id number] Ambulatory BMSBuilding:B [place] [facility] Hospital Repository 02/25/2018 [id number] Ambulatory BMSBuilding:B [place] MS.[facility] Hospital Repository 02/25/2018 [id number] Ambulatory [facility] Hospital Repository 01/10/2018/01/10/20 [id number] Ambulatory BMSBuilding:B [place] [facility] Hospital Repository 01/10/2018 [id number] [facility] ing:MTLAB Repository PAYERS PAYERS ENCOUNTER GUARANTOR PAYER SUBSCRIBER SOURCE 12/09/2018 DALIA Jose Primary Insurance:[facility] DALIA E [place] [id number] PACKAGE PLANPolicy [facility]ONAUERDOB: [facility], [facility]: [id number] [address]His: [id number] Repository Date:2018-12-03 (HP) 12/09/2018 Secondary NOT GIVENUNK [place] Insurance:SELF PAY [facility] Number: Effective Repository Date:2018-12-03 12/05/2018 DALIA E Primary NOT GIVENUNK [place] [id number] Insurance:SELF PAY [facility] [place] [address]Npy: Number: Effective Repository Date:2018-12-05 (HP) 11/29/2018 DALIA E Primary Insurance:[facility] DALIA E [place] [id number] PACKAGE PLANPolicy SCHONAUERDOB: [facility], Number: [id number] [facility] [address]Rbt: [id number] Repository Date:2018-10-07 (HP) 11/29/2018 Secondary DALIA E [place] Insurance:RELIGIOUS SCHONAUERDOB: [id number] Repository Number: [id number] Date: [place], [place] [address]PB: 11/29/2018 Tertiary NOT GIVENUNK [place] Insurance:SELF PAY [facility] Number: Effective Repository Date:2018-10-07 10/16/2018 DALIA E Primary NOT GIVENUNK [place] [id number] Insurance:SELF PAY [place] Number: Effective Repository [id number]: (330) Date:2018-10-16 [phone] () 02/27/2018 DALIA E Primary DALIA E [place] [id number] Insurance:MEDICAL SCHONAUERDOB: [facility] [id number] Number: Repository [address]Oan: [id number] [phone] Date:[id number] [address]UQ: 02/27/2018 Secondary NOT GIVENUNK [place] Insurance:SELF PAY [facility] Number: Effective Repository Date:2018-01-10 02/25/2018 DALIA E Primary DALIA E [place] [id number] Insurance:MEDICAL SCHONAUERDOB: [facility] [id number] Number: Repository [address]Xai: [id number] [phone] Date:[id number] () [address] [place] [phone]: 02/25/2018 Secondary NOT GIVENUNK [place] Insurance:SELF PAY [facility] Number: Effective Repository Date:2018-02-25 02/25/2018 DALIA E Primary DALIA E [place] [id number] Insurance:MEDICAL SCHONAUERDOB: [facility] [id number] Number: Repository [id number]: [id number] [phone] Date:[id number] () [address] [place] [id number]: 02/25/2018 Secondary NOT GIVENUNK [place] Insurance:SELF PAY [facility] Number: Effective Repository Date:2018-02-25 01/10/2018 DALIA E Primary DALIA E [place] [id number] Insurance:MEDICAL SCHONAUERDOB: [facility] [id number] Number: Repository [id number]: [id number] [phone] Date:[id number] () [address] [place] [id number]: 01/10/2018 Secondary NOT GIVENUNK [place] Insurance:SELF PAY [facility] Number: Effective Repository Date:2018-01-10 01/10/2018 DALIA E Primary DALIA E [place] [id number] Insurance:[facility]ICAL [facility] [id number] Number: Repository [id number]: [id number] [phone] Date:[id number] (ZH) [address] [address]VJ: 01/10/2018 Secondary NOT GIVENVIPUL Banda Insurance:SELF PAY [facility] Number: Effective Repository Date:2018-01-10
== END ==
PROVIDERS: Family Provider Family Medicine; PCP Family Medicine; Referring Provider Family Medicine; Visit Provider Family Medicine
DX: Z00.00 Encounter for general adult medical examination without abnormal findings (principal)
CPT/HCPCS: 36415; 80048; 80061; 82306; 84443

== ENCOUNTER → 2018-12-09 09:03 | Outpatient (CLI) | payer SELFPAY ==
[2018-10-16 15:20] VITALS: BMI 23.1
--- NOTE | 2018-12-09 09:15 | BD_ITS ---
STUDY: DUAL ENERGY X-RAY ABSORPTIOMETRY / DXA REASON FOR EXAM: Female, 63 years old. The patient is postmenopausal. Loss of height. TECHNIQUE: Bone Mineral Density (BMD) measurements of lumbar spine and bilateral hips were obtained. COMPARISON: None. FINDINGS: Lumbar Spine (L1-L4): g/cm2 (0.927) / T-score (-2.1) / Z-score (-0.8) Findings are suggestive of osteopenia with a high fracture risk. Left Femur Total: g/cm2 (0.873) / T-score (-1.1) / Z-score (0.1) Left Femoral Neck: g/cm2 (0.801) / T-score (-1.7) / Z-score (-0.4) Right Femur Total: g/cm2 (0.884) / T-score (-1.0) / Z-score (0.0) Right Femoral Neck: g/cm2 (0.853) / T-score (-1.3) / Z-score (-0.1) BD/Dexa Bone Density Study IMPRESSION: The patient is considered osteopenic as outlined below according to World Mo Organization (WHO) criteria with a moderate fracture risk. Reference Information: The T-score is the number of standard deviations above or below the standard which is normal for young adults at their peak bone mineral density. The World Health Organization (WHO) interprets the T-scores as follows: Above -1 Normal bone density Between -1 and -2.5 Osteopenia Equal to / or below -2.5 Osteoporosis As a practical clinical guideline, osteopenia may be graded as follows: Mild -1 through -1.5 Moderate -1.6 through -2.0 Severe -2.1 through -2.4 The Z-score is the number of standard deviations above or below age-matched controls. A Z-score of less than -1.5 would be considered abnormal. References: 1. NIH Osteoporosis and Related Bone Diseases http://www.osteo.org 2. International Society for Clinical Densitometry http://www.iscd.org 3. National Osteoporosis Foundation http://www.nof.org Electronically Signed: He Smith MD at 11:20 EST Tel [phone], Service support ,
--- OUTSIDE RECORDS SUMMARY | 2019-02-10 09:31 | XMS RPT_ITS ---
:1955 Author Organization OHIP Support Name Relationship Address Phone R Unavailable Unavailable Unavailable DAGMAR MADRID Unavailable [address] + [place] [address] R Unavailable Unavailable Unavailable DAGMAR MADRID Unavailable [address] + [place] [address] R Unavailable Unavailable Unavailable DAGMAR MADRID Unavailable [address] + [place] [address] BUEMI Unavailable [address] + [place] [address] DAGMAR MADRID Unavailable [address] + [place] [address] BUEMI Unavailable [address] + [place] [address] DAGMAR MADRID Unavailable [address] [phone] [place] [address] BUEMI Unavailable [address] + [place] [address] DAGMAR MADRID Unavailable [address] [phone] [place] [address] BUEMI Unavailable [address] + [place] [address] KANE MADRIDN Unavailable [address] [phone] [place] [address] BUEMI Unavailable [address] + [place] [address] BUEMI Unavailable [address] + [place] [address] DAGMAR MADRID Unavailable [address] [phone] [place] [address] BUEMI Unavailable [address] + [place] [address] RALPH NOVOA Unavailable [address] + [place] [address] KANE MADRIDN Unavailable [address] [phone] [place] [address] Care Team Providers Name Role Phone SNOW ARAGON Attending Unavailable Snow Lehman Attending Unavailable Win, Kwan Primary Care Unavailable Win, Kwan Attending Unavailable Win, Kwan Referring Unavailable Win, Kwan Primary Care Unavailable Win, Kwan Attending Unavailable Win, Kwan Referring Unavailable Win, Kwan Primary Care Unavailable Jeremy, Sanford Attending Unavailable Win, Wkan Primary Care Unavailable Jeremy, Sanford Referring Unavailable [...] Unknown Z00.00 - Encounter Kwan Win Active [place] for general adult [facility] examination Repository without abnormal findings / Z00.00(ICD-10) 10/16/2018 Unknown R00.2 - Sanford Luna Active [place] [facility] / Community R00.2(ICD-10) Hospital Repository 07/10/2018 Active Unknown / SHAKEEL [facility] 02/07/2018 Unknown R07.9 - Chest Nurse, Standard Active [place] pain, unspecified Community / R07.9(ICD-10) Hospital Repository PROCEDURES PROCEDURES No Procedure Records FoundRESULTS RESULTS DEXA BONE DENSITY Observed: 12/09/2018 Status: F Source: [place] STUDY 9:12 AM [facility] HOSPITAL REPOSITORY [facility] Imaging Services [address] [place] [address] Dexa Bone Density Study MR#: [id number] Acct: [id number] Name: DALIA MADRID Rep #: [id number] : 1955 F 63 From: He Smith MD PCP: Kwan Win MD Status: REG CLI Study: Dexa Bone Density Study Date of Exam: 12/09/18 Exam# [id number] Ordering Dr: Kwan Win MD STUDY: DUAL [...] He Smith MD at 11:20 EST Tel [phone], Service support , CC: Kwan Win MD Instructional Coordinator: Signed BASIC METABOLIC Collected: 12/05/2018 Status: F Source: [place] PROFILE (BMP) 8:20 AM [facility] REPOSITORY TYPE CODE TESTS RESULT OUT OF [...] Performed By: #### L500.2500, L500.4100, L501.9520 #### [facility] [address] [place], [address] LIPID PROFILE Collected: 12/05/2018 Status: F Source: [place] 8:20 AM [facility] REPOSITORY TYPE CODE TESTS RESULT OUT OF [...] Performed By: #### L500.2500, L500.4100, L501.9520 #### [facility] [address] [place], [address] THYROID STIM HORMONE Collected: 12/05/2018 Status: F Source: [place] (TSH) 8:20 AM [facility] REPOSITORY TYPE CODE TESTS RESULT OUT OF RANGE REFERENCE UNITS LAB L501.9520 0.358-3.74 uIU/mL Normal TSH 1.93 Performed By: #### L500.2500, L500.4100, L501.9520 #### [facility] [address] [place] [place], [address] VITAMIN D,25 HYDROXY Collected: 12/05/2018 Status: F Source: [place] 8:20 AM [facility] REPOSITORY TYPE CODE TESTS RESULT OUT OF RANGE REFERENCE UNITS LAB L506.1000 29.95-100.01 ng/mL Normal Vitamin D 35.8 25-OH Result Comment: Vitamin D 25(OH) Status Range Deficiency <20 ng/mL (50nmol/L) Insuffciency 20 - 30 ng/mL (50 - 75 nmol/L) Sufficiency 30 - 100 ng/mL (75 - 250 nmol/L) Toxicity >100 ng/mL (>250 nmol/L) Performed By: #### L506.1000 #### [facility] [address] [place], [address] SCREENING MAMM (CAD), Observed: 11/29/2018 Status: F Source: [place] BILAT 9:08 AM [facility] REPOSITORY [facility] Imaging Services [address] [place] [address] SCREENING MAMM (CAD), BILAT MR#: [id number] Acct: [id number] Name: DALIA MADRID Rep #: [id number] : 1955 F 63 From: He Smith MD PCP: Kwan Win MD Status: REG CLI Study: SCREENING MAMM (CAD), BILAT Date of Exam: 11/29/18 Exam# [id number] Ordering Dr: Snow Neal MD MAMMOGRAPHY - [...] delay biopsy of a clinically suspicious abnormality. [id number] Electronically Signed: He Smith MD at 14:06 EST Tel [phone], Service support , CC: Snow Lehman MD; Kwan Win MD Instructional Coordinator: Signed CARDIOLOGY VISIT Observed: 10/16/2018 Status: F Source: [place] REPORT 3:35 PM [facility] REPOSITORY [facility] 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 Dalia Madrid is a [...] children: 1 Occupational History Occupation Employer Comment [employer] Social History Main Topics Smoking status: Never [...] external genitalia normal, normal Bartholin's glands, urethra, [place]'s glands, no vulvar lesions, good vaginal support, [...] daily.Disp: 15 gRfl: 0 UA DIP B/O [[id number]] Order #: [id number] Prescriptions as of 07/10/2018 Sig: CLOTRIMAZOLE-BETAMETHASONE 1 [...] 07/10/18 PROGRESS Observed: 07/10/2018 Status: COMPLETED Source: [place] 11:15 AM [facility] REPOSITORY HNO ID: [id number] Author: Snow Jimenez Service: (none) Author Type: Physician Type: Progress Notes Filed: 07/10/2018 1:10 PM Note Text: Pneumatic Tube Operator offered: Patient declines. 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 [place] [address] OFFICE VISIT Date of Service: 02/27/18 MR#: [id number] Acct: [id number] Name: DALIA MADRID Rep #: [id number] : 1955 Provider: GERMANIA Gibbs Age/Sex: 62/F Location[place] [facility] Status: Signed HPI HPI Details: DALIA MADRID, [...] tricuspid valve insufficiency I36.1 Plan - SHIV Aragon Echocardiogram from October 2016 showed mild tricuspid [...] prior to saving. 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) Coding Level of Care Code Off vis,est,level [...] 01/13/2018 Status: F Source: [place] 2:00 PM [place] [address] [address] OFFICE VISIT Date of Service: 01/10/18 MR#: [id number] Acct: [id number] Patient: DALIA MADRID Rep #: [id number] : 1955 Provider: Sulema Nurse RN Age/Sex: 62/F Location: [facility] Status: Signed Intake Intake Visit Reasons: Chest [...] <Electronically signed by Eliz AHUJA> Date Eliz AHUJA Cosigner Signature: Date (if applicable) CC: Mayuri Latif CBC-COMPLETE BLOOD CNT Collected: 01/10/2018 Status: F Source: [place] NO DIFF 1:22 PM [facility] REPOSITORY TYPE CODE TESTS RESULT OUT OF [...] MPV 8.9 Performed By: #### L100.0500 #### [facility] [address] [place], [address] ALLERGIES ALLERGIES DATE TYPE / CODE NAME / CODE REACTION SEVERITY SOURCE 10/16/2018 Drug Sulfa (Sulfonamide Unknown Unknown [place] Allergy/416 Antibiotics)/P91661 Community 861098([facility] Rep[facility] 10/16/2018 Drug erythromycin Unknown SV [place] Allergy/416 base/[id number](RXN Community 671036([facility] ED CT) Repository 10/16/2018 Drug sulfamethoxazole/F0 Unknown Unknown [place] Allergy/416 71095540(RXNORM) Community 140736([facility] ED CT) Repository 10/16/2018 Drug trimethoprim/L53906 Unknown Unknown [place] Allergy/416 2873(RXNORM) Community 176735([facility] ED CT) Repository 04/27/2015 Drug SULFA (SULFONAMIDE UNKNOWN [facility] Class/30234 ANTIBIOTICS) Main Munith 1003(SNOMED Repository CT) ENCOUNTERS ENCOUNTERS ADMIT/DISCHARGE ACCOUNT ADMITTING ENCOUNTER LOCATION SOURCE NUMBER CLASS 12/09/2018 [id number] [facility] ing:OPBD Repository 12/05/2018 [id number] [facility] ing:LAB Repository 11/29/2018 [id number] [facility] ing:OPBI Repository 10/16/2018/10/16/20 [id number] Ambulatory BMSBuilding:B [place] 18 [facility] Hospital Repository 07/10/2018/07/11/20 [id number] Ambulatory [address] Repository 02/27/2018/02/28/20 [id number] Ambulatory BMSBuilding:B [place] 18 [facility] Hospital Repository 02/25/2018 [id number] Ambulatory BMSBuilding:B [place] [facility] Hospital Repository 02/25/2018 [id number] Ambulatory [facility] Hospital Repository 01/10/2018/01/10/20 [id number] Ambulatory BMSBuilding:B [place] 18 [facility] Hospital Repository 01/10/2018 [id number] [facility] ing:MTLAB Repository PAYERS PAYERS ENCOUNTER GUARANTOR PAYER SUBSCRIBER SOURCE 12/09/2018 DALIA Jose Primary Insurance:[facility] DALIA E [place] [id number] PACKAGE PLANPolicy SCHONAUERDOB: [facility], Number: [id number] [address]Qmb: [id number] Repository Date:2018-12-03 (HP) 12/09/2018 Secondary NOT GIVENUNK [place] Insurance:SELF PAY [facility] Number: Effective Repository Date:2018-12-03 12/05/2018 DALIA E Primary NOT GIVENUNK [place] [id number] Insurance:SELF PAY [facility] [place] [address]Suz: Number: Effective Repository Date:2018-12-05 (HP) 11/29/2018 DALIA E Primary Insurance:[facility] DALIA E [place] [id number] PACKAGE PLANPolicy SCHONAUERDOB: [facility], Number: [id number] City [facility] [address]Obi: [id number] Repository Date:2018-10-07 (HP) 11/29/2018 Secondary DALIA E [place] Insurance:ORTHODOXY SCHONAUERDOB: [id number] Repository Number: [id number] Date: [place], [place] [address]UY: 11/29/2018 Tertiary NOT GIVENUNK [place] Insurance:SELF PAY [facility] Number: Effective Repository Date:2018-10-07 10/16/2018 DALIA E Primary NOT GIVENUNK [place] [id number] Insurance:SELF PAY [place] Number: Effective Repository [id number]: (330) Date:2018-10-16 [phone] () 02/27/2018 DALIA E Primary DALIA E [place] [id number] Insurance:MEDICAL SCHONAUERDOB: [facility] 1230-54-09YZHLos [place] Number: Repository [id number]: [id number] [phone] Date:7067-42-52[address] [address], [place] [address]KV: 02/27/2018 Secondary NOT GIVENUNK [place] Insurance:SELF PAY [facility] Number: Effective Repository Date:2018-01-10 02/25/2018 DALIA E Primary DALIA E [place] [id number] Insurance:MEDICAL SCHONAUERDOB: [facility] [id number] [place] Number: Repository [id number]: [id number] [phone] Date:9600-91-42FL [address] () [address] [place] [phone]: 02/25/2018 Secondary NOT GIVENUNK [place] Insurance:SELF PAY [facility] Number: Effective Repository Date:2018-02-25 02/25/2018 DALIA E Primary DALIA E [place] [id number] Insurance:MEDICAL SCHONAUERDOB: [facility] [id number] [place] Number: Repository [address]Ioa: [id number] [phone] Date:7405-78-63GP [address] () [address] [place] [phone]: 02/25/2018 Secondary NOT GIVENUNK [place] Insurance:SELF PAY [facility] Number: Effective Repository Date:2018-02-25 01/10/2018 DALIA E Primary DALIA E [place] [id number] Insurance:MEDICAL SCHONAUERDOB: [facility] 0365-04-18OTYLos [place], [place] Number: Repository [id number]: [id number] [phone] Date:8007-62-97VC [address] () [address] [place] [id number]: 01/10/2018 Secondary NOT GIVENUNK [place] Insurance:SELF PAY [facility] Number: Effective Repository Date:2018-01-10 01/10/2018 DALIA E Primary DALIA E [place] [id number] Insurance:MEDICAL COMMUNITY HEALTHONAUERDOB: [facility] [id number] [place] Number: Repository [id number]: [id number] [phone] Date:9688-85-41MN [address] ([address]) [address], [place] [address]OE: 01/10/2018 Secondary NOT GIVENVIPUL [place] Insurance:SELF PAY [facility] Number: Effective Repository Date:2018-01-10
== END ==
PROVIDERS: Family Provider Family Medicine; PCP Family Medicine; Referring Provider Family Medicine; Visit Provider Family Medicine
DX: Z00.00 Encounter for general adult medical examination without abnormal findings (principal); Z78.0 Asymptomatic menopausal state; M85.80 Other specified disorders of bone density and structure, unspecified site
CPT/HCPCS: 77080

== ENCOUNTER → 2019-02-05 09:59 | Outpatient (CLI) | payer SELFPAY ==
[2018-10-16 15:20] VITALS: BMI 23.1
--- NOTE | 2019-02-05 10:04 | ART_ITS ---
Reason For Study: numbness and tingling Left Segmental Pressures Left brachial= 128mmHg. Left posterior tibial artery = 161mmHg. Left dorsalis pedis artery = 166mmHg. The left dorsalis pedis waveforms are triphasic. The left posterior tibial artery waveforms are triphasic. Right Segmental Pressures Right brachial= 125mmHg. Right posterior tibial artery = 163mmHg. Right dorsalis pedis artery = 154mmHg. The right dorsalis pedis waveforms are triphasic. The right posterior tibial artery waveforms are triphasic. Indices The right ankle brachial index by the dorsalis pedis is 1.2. The right ankle brachial index by the posterior tibial artery is 1.27. The right ankle brachial index by the posterior tibial artery post exercise is 1.26. The left ankle brachial index by the dorsalis pedis is 1.30. The left ankle brachial index by the posterior tibial artery is 1.26. The left dorsalis pedis index post exercise is 1.26. Interpretation Summary Triphasic Doppler waveforms are noted at ankle level bilaterally. Resting ankle-brachial indices are normal bilaterally. Following a 5 minute period of ambulation, which was tolerated well and without complaints, ankle pressures augmented bilaterally, which is a normal physiological response. There is no evidence of significant arterial occlusive disease in the lower extremities bilaterally. Ordering Physician: Kwan Win Performed By: LORNA THURMAN RVT
== END ==
PROVIDERS: Family Provider Family Medicine; PCP Family Medicine; Referring Provider Family Medicine; Visit Provider Family Medicine
DX: R20.0 Anesthesia of skin (principal); R20.2 Paresthesia of skin
CPT/HCPCS: 93922

== ENCOUNTER → 2019-04-30 13:52 | Outpatient (CLI) | payer SELFPAY ==
[2018-10-16 15:20] VITALS: BMI 23.1
== END ==
PROVIDERS: Family Provider Family Medicine; PCP Family Medicine; Referring Provider Physician Assistant Medical; Visit Provider Physician Assistant Medical
DX: R00.2 Palpitations (principal)
CPT/HCPCS: 93225; 93226

== ENCOUNTER → 2019-11-12 15:14 | Outpatient (CLI) | payer SELFPAY ==
[2019-11-12 13:48] VITALS: BMI 23.6
== END ==
PROVIDERS: Family Provider Family Medicine; PCP Family Medicine; Referring Provider Nurse Practitioner Women's Health; Visit Provider Nurse Practitioner Women's Health
DX: N81.6 Rectocele (principal); N76.0 Acute vaginitis
CPT/HCPCS: 87070; 87205

== ENCOUNTER → 2020-01-01 08:20 | Outpatient (CLI) | payer SELFPAY ==
[2019-11-12 13:48] VITALS: BMI 23.6
--- NOTE | 2020-01-01 08:36 | BI_ITS ---
MAMMOGRAPHY - BILATERAL SCREENING REASON FOR EXAM: Female, 64 years old. Routine annual screening examination. PERTINENT HISTORY: Mother with breast cancer. TECHNIQUE: Digital bilateral breast carson (3D mammographic acquisition) in the CC and MLO projections. 2-D mediolateral oblique (MLO) and craniocaudad (CC) views of both breasts were obtained. CAD: Full Field Digital Mammography with Computer Added Detection was performed. COMPARISON: Comparison is made with prior examination dated November 29, 2018 and September 03, 2014. FINDINGS: Breast Composition: There are scattered areas of fibroglandular density. There are no dominant masses or suspicious calcifications. No other significant abnormalities are identified. There has been no significant change since the prior study. BI/SCREEN MAMM (CAD) W/CARSON BILAT IMPRESSION: Stable bilateral screening mammogram. Yearly follow-up mammogram recommended. (A) ASSESSMENT CATEGORY: BIRADS Category 1: Negative. A letter regarding these results will be sent to the patient by the facility within 30 days. Approximately 10% of breast cancers are not detected by mammography. A normal mammogram should not delay biopsy of a clinically suspicious abnormality. [id number] Electronically Signed: He Smith, at 10:11 EST , Service support ,
== END ==
PROVIDERS: Family Provider Family Medicine; PCP Family Medicine; Referring Provider Obstetrics & Gynecology; Visit Provider Obstetrics & Gynecology
DX: Z12.31 Encounter for screening mammogram for malignant neoplasm of breast (principal); Z80.3 Family history of malignant neoplasm of breast
CPT/HCPCS: 77063; 77067

== ENCOUNTER 2020-09-12 08:00 | Emergency (ER) | payer OTHER, SELFPAY ==
[2020-08-30 16:00] VITALS: BMI 23.6
[2020-09-12 08:00] VITALS: BP 152/87; PULSE 101; RESP 18; TEMP 36.1; O2SAT 98; BMI 22.9
--- NOTE | 2020-09-12 08:21 | RAD_ITS ---
STUDY: X-RAY CHEST REASON FOR EXAM: Female, 64 years old. CP X 1 WK TECHNIQUE: Single AP portable view of the chest. COMPARISON: None. FINDINGS: EKG electrodes are seen. Minimal increased linear markings in the right upper lobe suggesting mild scarring. There is no demonstrated pleural abnormality. Normal size heart. Normal mediastinum and zoey. Normal visualized pulmonary arteries. Normal visualized aortic arch and descending thoracic aorta. Normal visualized thoracic spine. Normal visualized ribs, clavicles, and shoulders. Small hiatal hernia. RAD/Chest 1 View (Portable) IMPRESSION: No acute abnormality is seen. Electronically Signed: He Smith, at 9:16 EDT , Service support ,
--- NOTE | 2020-09-12 08:21 | EKG12_ITS ---
Test Reason : CP Blood Pressure : / mmHG Vent. Rate : 087 BPM Atrial Rate : 087 BPM P-R Int : 152 ms QRS Dur : 074 ms QT Int : 368 ms P-R-T Axes : 059 016 042 degrees QTc Int : 442 ms Normal sinus rhythm Normal ECG Confirmed by NYLA OVIEDO, LORNA ([id number]), photography editor ELLIS GILLILAND ([id number]) on 09/13/2020 10:36:28 AM Referred By: GABRIEL Confirmed By:LORNA REDMOND MD
--- NOTE | 2020-09-12 08:33 | ED.DCSUM_ITS ---
- ER Visit Summary Date of Service: 09/12/20 Chief Complaint: Chest pain History of Present Illness: The patient is a 64 F who presents with chest pain. She has had this pain for about 5 days. She describes a tightness in her upper chest and down in her right chest area. She states that exertion makes it worse and rest makes it improved. She denies any shortness of breath or diaphoresis. She denies nausea or vomiting. She took nothing for it at home except for aspirin. She has no stents in her heart. No history of any cardiac disease. She is hypertensive and is a non-smoker. She has no other cardiac risk factors. She has no PE or DVT risk factors. Physical Examination: Vital signs reviewed. HEENT exam unremarkable. Heart is regular rate and rhythm without murmurs. Lungs are clear to auscultation. Abdomen is soft and nontender. Extremities reveal no edema. Peripheral pulses are equal. Skin exam normal. Neurologic exam normal. Test Results: Laboratory studies are normal except for troponin of 0.015. She has history normal. EKG was sinus rhythm with no ischemic changes. Emergency Department Course and Treatment: Patient was given aspirin. Her work- up here is negative. I discussed this with Dr. Luna, her electrotyper helper. He recommended putting the patient on amlodipine however I rechecked her blood pressure and it was 124/79 and she has not taken her morning dose of metoprolol. Since she has not taken her medications this morning I will hold off on starting the amlodipine as I do not want to give her hypotension. She will follow-up next week for her stress test. Treatment Plan: [] Disposition: Discharge Impression: Chest pain This note was generated with Long Play dictation software. It may contain incorrect words, spelling, and punctuation that were not noted in review of the chart prior to signing ED Disposition - Plan for ED Patient: Disposition: Home or Assisted Living Instructions: ED Chest Pain NonCardiac Referrals: wKan Win MD [Primary Care Provider] -
[2020-09-12] MEDS: Aspirin 81 MG TAB.CHEW 324 MG PO (08:50)
[2020-09-12 09:08] LABS: Absolute Lymphocyte Count 1.84 X10^3/uL (0.83-4.51); Absolute Neutrophil Count 5.8 X10^3/uL (2.0-7.7); Basophil# 0.01 X10^3/uL; Basophil% 0.1 % (0-1); Eosinophil# 0.07 X10^3/uL; Eosinophils% 0.8 % (0-5); Hematocrit 42.6 % (37-47); Hemoglobin 13.2 g/dL (12.0-15.0); Lymphocyte # 1.84 X10^3/ul (4.0); Lymphocyte % 21.7 % (19-41); Mean Corpuscular Hgb 25.5 pg (27.0-32.0); Mean Corpuscular Volume 82.4 fL (81-99); Mean Platelet Vol. 8.9 fl (6.2-12.0); Monocyte# 0.68 X10^3/uL; NRBC Flagged by Analyzer 0 % (0-5); Neutrophil # 5.84 X10^3/uL (2.7-7.7); Platelet Count 363 K/mm3 (150-450); RBC Distribution Width CV 15.2 % (11.6-14.6); RBC Distribution Width SD 45.6 fl (35.1-43.9); Red Blood Count 5.17 M/mm3 (4.2-5.4); White Blood Count 8.5 K/mm3 (4.4-11.0)
[2020-09-12 09:24] LABS: Anion Gap 6 (5-15); BUN 17 mg/dL (7-18); BUN/Creat Ratio 17.8 RATIO (10-20); Calcium,Total 9.2 mg/dL (8.5-10.1); Chloride 108 mmol/L (98-107); Creatinine, Serum 0.96 mg/dL (0.55-1.02); EST Glomerular Filtration Rate 63 mL/min (>60); Est Glom Filt Rate - Afr Amer 76 mL/min (>60); Estimated Creatinine Clearance 54.67 ml/min; Glucose 93 mg/dL (74-106); Potassium 3.9 mmol/L (3.5-5.1); Sodium Level 141 mmol/L (136-145)
[2020-09-12 10:34] VITALS: BP 125/76; BP 125/79; PULSE 76; PULSE 82; RESP 17; O2SAT 96
== END 2020-09-12 10:51 | disposition home or self-care (01) ==
PROVIDERS: Emergency Provider Emergency Medicine; PCP Family Medicine
DX: R07.9 Chest pain, unspecified (principal); I10 Essential (primary) hypertension; Z79.82 Long term (current) use of aspirin; Z79.899 Other long term (current) drug therapy
CPT/HCPCS: 71045; 80048; 84484; 85025; 93005; 99283

== ENCOUNTER → 2020-09-19 06:25 | Outpatient (CLI) | payer SELFPAY ==
[2020-08-30 16:00] VITALS: BMI 23.6
[2020-09-12 08:00] VITALS: BMI 22.9
--- NOTE | 2020-09-19 14:49 | STRESSREP ---
Stress Test Report Exercise myocardial perfusion stress test. 64-year-old lady with a history of chest pain. Stress protocol: Resting EKG demonstrates normal sinus rhythm with a rate of 93 bpm normal intervals are noted resting blood pressure is 134/82 mmHg. The patient exercised according to regular Juan protocol for a total duration of 5 minutes the maximum heart rate attained was 1 and 34 bpm which was 84% of max impacted heart rate the maximum workload was 7 metabolic equivalents. At rest there were no ST or T wave changes noted suggest ischemia peak exercise upsloping ST changes were new were noted with no meet the criteria for ischemia. No clinical angina was noted. The test was terminated due to target heart rate being achieved and leg fatigue. The peak blood pressure was 156/72 mmHg. Myocardial perfusion protocol. 11.6 mCi of technetium 99m sestamibi was injected at rest. The patient exercised according to regular Juan protocol for 5 minutes. At peak exercise 32.7 mCi of technetium 99m sestamibi was injected stress images were obtained stress and rest images were reconstructed and compared in the short axis vertical long horizontal long axis. Gated images were also obtained Perfusion SPECT analysis: Review of the stress images demonstrate normal uptake of tracer noted in all areas of myocardium the resting images similar demonstrate normal uptake of tracer noted in all areas of the myocardium. No reversibility is noted suggest ischemia no previous infarct is noted. Gated SPECT analysis: The gated ejection fraction is 80%. Conclusion: Normal exercise myocardial perfusion stress test at a moderate workload. Preserved ejection fraction.
== END ==
PROVIDERS: PCP Family Medicine; Referring Provider Physician Assistant Medical; Visit Provider Physician Assistant Medical
DX: R07.9 Chest pain, unspecified (principal)
CPT/HCPCS: 78452; 93017; A9500; A4216

== ENCOUNTER → 2020-10-04 10:44 | Outpatient (CLI) | payer SELFPAY ==
[2020-09-12 08:00] VITALS: BMI 22.9
[2020-10-04 12:33] LABS: Absolute Lymphocyte Count 1.61 X10^3/uL (0.83-4.51); Absolute Neutrophil Count 6.8 X10^3/uL (2.0-7.7); Basophil# 0.02 X10^3/uL; Basophil% 0.2 % (0-1); Eosinophil# 0.07 X10^3/uL; Eosinophils% 0.8 % (0-5); Hematocrit 42.8 % (37-47); Hemoglobin 12.8 g/dL (12.0-15.0); Lymphocyte # 1.61 X10^3/ul (4.0); Lymphocyte % 17.4 % (19-41); Mean Corp Hgb Conc 29.9 g/dL (32-36); Mean Corpuscular Volume 83.8 fL (81-99); Mean Platelet Vol. 9.1 fl (6.2-12.0); Monocyte# 0.71 X10^3/uL; Monocyte% 7.7 % (0-10); NRBC Flagged by Analyzer 0 % (0-5); Neutrophil # 6.83 X10^3/uL (2.7-7.7); Neutrophil % 73.7 % (47-70); Platelet Count 412 K/mm3 (150-450); RBC Distribution Width CV 15.7 % (11.6-14.6); RBC Distribution Width SD 47.4 fl (35.1-43.9); Red Blood Count 5.11 M/mm3 (4.2-5.4); White Blood Count 9.3 K/mm3 (4.4-11.0)
[2020-10-04 13:09] LABS: Anion Gap 7 (5-15); BUN 22 mg/dL (7-18); Chloride 108 mmol/L (98-107); Creatinine, Serum 0.82 mg/dL (0.55-1.02); EST Glomerular Filtration Rate 75 mL/min (>60); Est Glom Filt Rate - Afr Amer 91 mL/min (>60); Glucose 107 mg/dL (74-106); Potassium 4.1 mmol/L (3.5-5.1); Sodium Level 141 mmol/L (136-145)
== END ==
PROVIDERS: PCP Family Medicine; Referring Provider Family Medicine; Visit Provider Nurse Practitioner Adult Health
DX: R53.83 Other fatigue (principal)
CPT/HCPCS: 36415; 80048; 85025

== ENCOUNTER → 2020-11-21 14:25 | Outpatient (CLI) | payer SELFPAY | PROVIDERS: PCP Family Medicine; Visit Provider Nurse Practitioner Family | DX: N39.0 Urinary tract infection, site not specified (principal) | CPT/HCPCS: 87086; 87088 ==

== ENCOUNTER → 2021-01-02 10:21 | Outpatient (CLI) | payer SELFPAY ==
--- NOTE | 2021-01-02 10:26 | BI_ITS ---
MAMMOGRAPHY - BILATERAL SCREENING REASON FOR EXAM: Female, 65 years old. Routine annual screening examination. PERTINENT HISTORY: Mother with breast cancer. TECHNIQUE: Digital bilateral breast carson (3D mammographic acquisition) in the CC and MLO projections. 2-D mediolateral oblique (MLO) and craniocaudad (CC) views of both breasts were obtained. CAD: Full Field Digital Mammography with Computer Added Detection was performed. COMPARISON: Comparison is made with prior study dated 01/01/2020 and 11/29/2018. FINDINGS: Breast Composition: There are scattered areas of fibroglandular density. There are no dominant masses or suspicious calcifications. No other significant abnormalities are identified. There has been no significant change since the prior study. BI/SCRN MAMM (CAD)W/CARSON BILAT IMPRESSION: Stable bilateral screening mammogram. Yearly follow-up mammogram recommended. (A) ASSESSMENT CATEGORY: BIRADS Category 1: Negative. A letter regarding these results will be sent to the patient by the facility within 30 days. Approximately 10% of breast cancers are not detected by mammography. A normal mammogram should not delay biopsy of a clinically suspicious abnormality. [id number] Electronically Signed: He Smith MD at 12:00 EST , Service support ,
== END ==
PROVIDERS: PCP Family Medicine; Referring Provider Obstetrics & Gynecology; Visit Provider Obstetrics & Gynecology
DX: Z12.31 Encounter for screening mammogram for malignant neoplasm of breast (principal)
CPT/HCPCS: 77063; 77067

== ENCOUNTER → 2021-04-12 08:12 | Outpatient (CLI) | payer SELFPAY ==
[2021-03-10 09:50] VITALS: BMI 23.4
[2021-04-12 09:48] LABS: Hematocrit 40.2 % (37-47); Hemoglobin 12.6 g/dL (12.0-15.0); Mean Corp Hgb Conc 31.3 g/dL (32-36); Mean Corpuscular Hgb 25.3 pg (27.0-32.0); Mean Corpuscular Volume 80.7 fL (81-99); Mean Platelet Vol. 9.3 fl (6.2-12.0); Platelet Count 390 K/mm3 (150-450); RBC Distribution Width CV 15.3 % (11.6-14.6); RBC Distribution Width SD 44.5 fl (35.1-43.9); Red Blood Count 4.98 M/mm3 (4.2-5.4); White Blood Count 7.9 K/mm3 (4.4-11.0)
== END ==
PROVIDERS: PCP Family Medicine; Referring Provider Internal Medicine Cardiovascular Disease; Visit Provider Internal Medicine Cardiovascular Disease
DX: R07.9 Chest pain, unspecified (principal); D64.9 Anemia, unspecified
CPT/HCPCS: 36415; 85027

== ENCOUNTER → 2021-10-30 | Outpatient (CLI) | payer MEDICARE, SELFPAY | END | disposition home or self-care (01) | LOC: LABSPEC 18:31 | PROVIDERS: Visit Provider Nurse Practitioner Family | DX: U07.1 COVID-19 (principal) | CPT/HCPCS: 87635; U0005; U0003 ==

== ENCOUNTER 2022-01-03 10:30 | Outpatient (CLI) | payer SELFPAY ==
--- NOTE | 2022-01-03 10:37 | BI_ITS ---
MAMMOGRAPHY - BILATERAL SCREENING REASON FOR EXAM: Female, 66 years old. Routine annual screening examination. PERTINENT HISTORY: Mother with breast cancer. TECHNIQUE: Digital bilateral breast carson (3D mammographic acquisition) in the CC and MLO projections. 2-D mediolateral oblique (MLO) and craniocaudad (CC) views of both breasts were obtained. CAD: Full Field Digital Mammography with Computer Added Detection was performed. COMPARISON: Comparison is made with prior study dated 01/02/2021 and 01/01/2020. FINDINGS: Breast Composition: There are scattered areas of fibroglandular density. There are no dominant masses or suspicious calcifications. Stable fat-containing left axillary lymph node. No other significant abnormalities are identified. There has been no significant change since the prior study. BI/SCRN MAMM (CAD)W/CARSON BILAT IMPRESSION: Stable bilateral screening mammogram. Yearly follow-up mammogram recommended. (A) ASSESSMENT CATEGORY: BIRADS Category 2: Benign. A letter regarding these results will be sent to the patient by the facility within 30 days. Approximately 10% of breast cancers are not detected by mammography. A normal mammogram should not delay biopsy of a clinically suspicious abnormality. [id number] Electronically Signed: He Smith MD at 12:06 EST ,
== END 2022-01-03 23:59 | disposition home or self-care (01) ==
PROVIDERS: PCP Family Medicine; Referring Provider Obstetrics & Gynecology; Visit Provider Obstetrics & Gynecology
DX: Z12.31 Encounter for screening mammogram for malignant neoplasm of breast (principal); Z80.3 Family history of malignant neoplasm of breast
CPT/HCPCS: 77063; 77067

== ENCOUNTER → 2022-04-20 | Outpatient (CLI) | payer SELFPAY ==
[2022-04-20 07:52] LABS: Hematocrit 39.7 % (37-47); Hemoglobin 12.5 g/dL (12.0-15.0); Mean Corp Hgb Conc 31.5 g/dL (32-36); Mean Corpuscular Hgb 26.1 pg (27.0-32.0); Mean Corpuscular Volume 82.9 fL (81-99); Mean Platelet Vol. 9.5 fl (6.2-12.0); Platelet Count 322 K/mm3 (150-450); RBC Distribution Width CV 15.3 % (11.6-14.6); RBC Distribution Width SD 46.1 fl (35.1-43.9); Red Blood Count 4.79 M/mm3 (4.2-5.4); White Blood Count 7.6 K/mm3 (4.4-11.0)
[2022-04-20 08:19] LABS: Anion Gap 7 (5-15); BUN 23 mg/dL (7-18); BUN/Creat Ratio 26.8 RATIO (10-20); Chloride 107 mmol/L (98-107); Creatinine, Serum 0.86 mg/dL (0.55-1.02); EST Glomerular Filtration Rate 71 mL/min (>60); Est Glom Filt Rate - Afr Amer 86 mL/min (>60); Glucose 105 mg/dL (74-106); Potassium 3.7 mmol/L (3.5-5.1); Sodium Level 140 mmol/L (136-145)
== END | disposition home or self-care (01) ==
PROVIDERS: PCP Family Medicine; Referring Provider Internal Medicine Cardiovascular Disease; Visit Provider Internal Medicine Cardiovascular Disease
DX: R07.9 Chest pain, unspecified (principal); D64.9 Anemia, unspecified
CPT/HCPCS: 36415; 80048; 85027

== ENCOUNTER → 2022-06-01 | Outpatient (CLI) | payer SELFPAY ==
--- NOTE | 2022-06-01 17:54 | STRESSREP ---
Stress Test Report Exercise myocardial perfusion stress test. 66-year-old lady with a history of chest pain. Stress protocol: Resting EKG demonstrates normal sinus rhythm with a rate of 91 bpm normal intervals are noted resting blood pressure is 138/88 mmHg. The patient exercised according to regular Juan protocol for total duration of 9 minutes completing stage III of the Juan protocol. The maximum heart rate attained was 157 bpm which was 100% of max impact at heart rate the maximum workload was 10.1 metabolic equivalents. At rest there were no ST or T wave changes noted to suggest ischemia and at peak exercise upsloping ST changes were noted which did not meet the criteria for ischemia. No clinical angina was noted. The final blood pressure was 132/76 with a peak blood pressure 138/88 mmHg. Myocardial perfusion protocol. 11.6 mCi of technetium 99m sestamibi was injected at rest. The patient exercised according to regular Juan protocol for total duration of 9 minutes and at peak exercise 33.9 mCi of technetium 99m sestamibi was injected stress images were obtained stress and rest images were reconstructed and compared in the short axis vertical long and horizontal long axis. Gated images were also obtained to Perfusion SPECT analysis: Review of the stress images demonstrate normal uptake of tracer noted in all areas of the myocardium. The resting images similar demonstrate normal uptake of tracer noted in all areas of the myocardium. No areas of reversibility are noted to suggest ischemia and no previous infarct is noted. Gated SPECT analysis: The gated ejection fraction is 69%. Conclusion: Normal exercise myocardial perfusion stress test with no evidence of ischemia at a high workload. Preserved ejection fraction
== END | disposition home or self-care (01) ==
PROVIDERS: PCP Family Medicine; Referring Provider Physician Assistant Medical; Visit Provider Physician Assistant Medical
DX: R07.9 Chest pain, unspecified (principal)
CPT/HCPCS: 78452; 93017; A9500; A4216

== ENCOUNTER → 2023-01-18 | Outpatient (CLI) | payer MEDICARE, SELFPAY ==
--- NOTE | 2023-01-18 12:43 | BI_ITS ---
MAMMOGRAPHY - BILATERAL SCREENING REASON FOR EXAM: Female, 67 years old. Routine annual screening examination. PERTINENT HISTORY: Mother with breast cancer. TECHNIQUE: Digital bilateral breast carson (3D mammographic acquisition) in the CC and MLO projections. 2-D mediolateral oblique (MLO) and craniocaudad (CC) views of both breasts were obtained. CAD: Full Field Digital Mammography with Computer Added Detection was performed. COMPARISON: Comparison is made with prior study of January 03, 2022 and January 02, 2021. FINDINGS: Breast Composition: There are scattered areas of fibroglandular density. There are no dominant masses or suspicious calcifications. Stable small fat-containing axillary lymph nodes. No other significant abnormalities are identified. There has been no significant change since the prior study. BI/SCRN MAMM (CAD)W/CARSON BILAT IMPRESSION: Stable bilateral screening mammogram. Yearly follow-up mammogram recommended. (A) ASSESSMENT CATEGORY: BIRADS Category 2: Benign. A letter regarding these results will be sent to the patient by the facility within 30 days. Approximately 10% of breast cancers are not detected by mammography. A normal mammogram should not delay biopsy of a clinically suspicious abnormality. [id number] Electronically Signed: He Smith MD at 13:49 EST ,
== END | disposition home or self-care (01) ==
LOC: OPBI 12:38
PROVIDERS: PCP Family Medicine; Visit Provider Obstetrics & Gynecology
DX: Z12.31 Encounter for screening mammogram for malignant neoplasm of breast (principal)
CPT/HCPCS: 77063; 77067

== ENCOUNTER → 2023-05-22 | Outpatient (CLI) | payer MEDICARE, SELFPAY | END | disposition home or self-care (01) | LOC: PSN 08:56 | PROVIDERS: PCP Family Medicine; Referring Provider Internal Medicine Cardiovascular Disease; Visit Provider Internal Medicine Cardiovascular Disease | DX: R00.2 Palpitations (principal) | CPT/HCPCS: 93225; 93226 ==

== ENCOUNTER → 2023-12-25 | Outpatient (CLI) | payer MEDICARE, SELFPAY ==
--- OUTSIDE RECORDS SUMMARY | 2023-12-25 08:36 | XMS RPT_ITS | CCD ---
Author Name Unknown Address [address] [facility] [address] [place] [address] Organization [facility] Care Team Providers Care Food Products Tester Name Role Phone Bhavya MAY, Mayuri Dailey Unavailable Unavailable Quirino OVIEDO, Kwan Sapp Unavailable [phone] Kwan Cantu MD Primary Care Provider [phone] Kwan Cantu MD Unavailable Kwan Cantu MD Primary Care Provider KWAN CANTU Primary Care Unavailable SNOW EDDY Referring Unavail able SNOW EDDY Attending Unavail able KWAN CANTU Primary Care Unavailable KWAN CANTU Primary Care Unavailable BLANQUITA BARBOSA Attending Unavailable Allergies Allergy Classification Reported Allergen(s) Allergy Type Date of Onset Reaction(s) Facility (1 source) Sulfonamides (Antibiotic) drug allergy 02-19-2011 [facility] Work Phone: (1 source) [facility] drug allergy 03-15-2015 unknown [facility] Work Phone: (4 sources) Sulfonamides (Antibiotic); Translations: [SULFA (SULFONAMIDE ANTIBIOTICS)] Drug Allergy 04-27-2015 Unknown [facility] Work Phone: Medications Completed/Discontinued Medications Medication Drug Class(es) Dates Sig (Normalized) Sig (Original) acetaminophen 325 mg oral tablet (2 sources) Start: 02-15-2016 End: 09-21-2016 TYLENOL 325 MG TABS as needed ACETAMINOPHEN [id number] Sanford Luna MD ALBUTEROL SULFATE (1 source) beta2-Adrenergic Agonist Start: 03-15-2015 PROAIR HFA 108 (90 Base) MCG/ACT AERS inhale 2 puffs every 4 hours prn ALBUTEROL SULFATE [id number] Mayuri Latif RN amoxicillin 500 mg oral capsule (1 source) Penicillin-class Antibacterial Start: 02-19-2011 End: 03-01-2011 take 1 capsule by mouth three times daily AMOXICILLIN 500 MG CAPS Take 1 capsule by mouth three times a day X 10 days AMOXICILLIN [id number] Shakira Enriquez PA aspirin 81 mg oral tablet (2 sources) Nonsteroidal Anti-inflammatory Drug Start: 02-15-2016 take 1 tablet by mouth once daily ASPIRIN 81 MG TABS One tablet by mouth daily ASPIRIN [id number] Sanford Luna MD Problems Active Problems Problem Classification Problem Date Documented Date Episodic/Chronic Genitourinary symptoms and ill-defined conditions (1 source) Dysuria; Translations: [Dysuria] Episodic Menopausal disorders (4 sources) Atrophy of vagina; Translations: [Postmenopausal atrophic vaginitis] Onset: 02-23-2022 Chronic Other female genital disorders (1 source) Pruritus of vagina; Translations: [Other specified noninflammatory disorders of vagina] Episodic Other screening for suspected conditions (not mental disorders or infectious disease) (5 sources) Patient encounter status; Translations: [Encounter for screening mammogram for malignant neoplasm of breast] Onset: 01-15-2023 Episodic Past or Other Problems Problem Classification Problem Date Documented Da te Episodic/Chronic Cardiac dysrhythmias (1 source) Palpitations; Translations: [Palpitations] Onset: 02-14-2016 02-14-2016 Episodic Crushing injury or internal injury (3 sources) Erosion of cervix; Translations: [Other injury of uterus, initial encounter] Onset: 01-01-2017 01-01-2017 Episodic Nonspecific chest pain (1 source) Chest pain; Translations: [Chest pain, unspecified] Onset: 09-21-2016 09-21-2016 Episodic Other upper respiratory infections (1 source) Acute sinusitis; Translations: [Acute sinusitis, unspecified] Onset: 02-19-2011 02-19-2011 Episodic Syncope (1 source) Syncope and collapse; Translations: [Syncope and collapse] Onset: 02-14-2016 02-14-2016 Episodic Results Test Name Value Interpretation Reference Range Facil ity Vital Signs Date Time Vital Sign Value Performing Clinician Katya neumann 01-15-2023 09:31-0500 Body height 161.3 cm Snow Sawyer MD Work Phone: [facility] 01-15-2023 09:31-0500 Body weight 61.69 kg Snow Sawyer MD Work Phone: [facility] 01-15-2023 09:31-0500 Diastolic blood pressure 68 mm[Hg] Snow Sawyer MD Work Phone: [facility] 01-15-2023 09:31-0500 Systolic blood pressure 116 mm[Hg] Snow Sawyer MD Work Phone: [facility] 02-23-2022 09:22-0400 Body weight 61.24 kg Blanquita Plotts ELEVATOR CONSTRUCTOR.CNM Work Phone: [facility] 02-23-2022 09:22-0400 Diastolic blood pressure 68 mm[Hg] Blanquita Plotts ELEVATOR CONSTRUCTOR.CNM Work Phone: [facility] 02-23-2022 09:22-0400 Systolic blood pressure 110 mm[Hg] Blanquita Plotts ELEVATOR CONSTRUCTOR.CNM Work Phone: [facility] 09-21-2016 15:23-0400 BMI (Body Mass Index) 23.46 kg/m2 Mayuri [facility] Work Phone: 09-21-2016 15:23-0400 BP Diastolic 76 mm[Hg] [facility]uri [facility] Work Phone: 09-21-2016 15:23-0400 BP Systolic 132 mm[Hg] Mayuri [facility] Work Phone: 09-21-2016 15:23-0400 BSA (Body Surface Area) 1.71 m2 Mayuri [facility] Work Phone: 09-21-2016 15:23-0400 Height 165.1 cm Mayuri [facility] Work Phone: 09-21-2016 15:23-0400 Pulse (Heart Rate) 86 /min Mayuri Latif RN [facility] Work Phone: 09-21-2016 15:23-0400 Respiratory Rate 18 /min Mayuri Latif RN [facility] Work Phone: 09-21-2016 15:23-0400 Weight 63.96 kg Mayuri Latif RN [facility] Work Phone: 02-19-2011 15:05-0400 Body Temperature 98.5 [degF] Mayuri Latif RN [facility] Work Phone: Encounters Encounter Date Encounter Type Care Provider Facility Start: 01-16-2023 End: 01-16-2023 ambulatory KWAN CANTU Facility:[facility] Start: 01-16-2023 End: 01-16-2023 Subsequent hospital visit by physician Bone Density [facility] Work Phone: Radiology Procedures Date Procedure Procedure Detail Performing Clinician Start: 01-16-2023 Dxa bone density manuela dy 1/> sites axial gilsonel Snow Sawyer MD Work Phone: Start: 02-23-2022 Urnls dip stick/tabl et rgnt auto w/o microscopy Blanquita Barbosa ELEVATOR CONSTRUCTOR.CNM Work Phone: Start: 01-03-2022 Mammography Blaqnuita rivas ELEVATOR CONSTRUCTOR.CNM Work Phone: Start: 09-21-2016 End: 2016 Stress Echocardiogram (treadmill) Sanford Luna MD Start: 02-15-2016 End: 02-21-2016 24 hour holter monitor Sanford Luna MD Start: 02-15-2016 End: 02-15-2016 WINDOWS TECHNICAL SPECIALIST Sanford Luna MD Start: 02-15-2016 End: 02-27-2016 Echocardiography Sanford Luna MD Start: 02-15-2016 End: 02-15-2016 Follow Up Appt 6 months [facility] Start: 08-30-2014 Sj rivas APRN.CNM Work Phone: Plan of Treatment Date Care Activity Detail Author Start: 01-19-2024 Mammography Mammogram Screening [facility] Start: 07-19-2023 Influenza vaccination Influenza Vaccine (#1) [facility] Start: 01-03-2023 Mammography MAMMOGRAM [facility] Start: 11-18-2022 ADVANCE DIRECTIVE DISCUSSION ADVANCE DIRECTIVE DISCUSSION [facility] Start: 11-18-2022 DEPRESSION ASSESSMENT DEPRESSION ASSESSMENT [facility] Start: 2022 BONE DENSITY BONE DENSITY [facility] Start: 2022 Pneumococcal Vaccine: 65+ (2 - PPSV23 or PCV20) Pneumococcal Vaccine: 65+ (2 - PPSV23 or PCV20) [facility] Start: 2022 PNEUMOCOCCAL: 65+ (2 - PPSV23 if available, else PCV20) PNEUMOCOCCAL: 65+ (2 - PPSV23 if available, else PCV20) [facility] Start: 07-19-2022 Influenza vaccination [facility] Start: 01-01-2022 HPV TESTING HPV TESTING [facility] Start: 01-01-2022 PAP TESTING PAP TESTING [facility] Start: 2017 RSV Vaccine (1 - 1-dose 60+ series) RSV Vaccine (1 - 1-dose 60+ series) [facility] Start: 09-21-2016 End: 09-21-2016 WINDOWS TECHNICAL SPECIALIST WINDOWS TECHNICAL SPECIALIST [facility] Work Phone: Start: 09-21-2016 End: 09-21-2016 Follow Up Appt 1 year Follow Up Appt 1 year [facility] Work Phone: Start: 09-21-2016 End: 09-24-2016 Stress Echocardiogram (treadmill) Stress Echocardiogram (treadmill) [facility] Work Phone: Start: 02-15-2016 End: 02-15-2016 24 hour holter monitor 24 hour holter monitor [facility] Work Phone: Start: 02-15-2016 End: 02-15-2016 WINDOWS TECHNICAL SPECIALIST WINDOWS TECHNICAL SPECIALIST [facility] Work Phone: Start: 02-15-2016 End: 02-15-2016 Echocardiography Echocardiogram (complete) [facility] Work Phone: Start: 02-15-2016 End: 02-15-2016 Follow Up Appt 6 months Follow Up Appt 6 months [facility] Work Phone: Start: 08-30-2015 Colonoscopy COLONOSCOPY [facility] Start: 08-30-2015 COLORECTAL CANCER SCREENING COLORECTAL CANCER SCREENING [facility] Start: 2007 SHINGRIX VACCINE (1 of 2) SHINGRIX VACCINE (1 of 2) [facility] Start: 2002 COLOGUARD (FIT-DNA) COLOGUARD (FIT-DNA) [facility] Start: [address] COLONOGRAPHY [facility] Start: 2002 DIABETES SCREEN DIABETES SCREEN [facility] Start: 2002 Diabetes Screening Diabetes Screening [facility] Start: 2002 FECAL OCCULT BLOOD FECAL OCCULT BLOOD [facility] Start: 2002 Lipid 1996 panel - Serum or Plasma Lipid Screening [facility] Start: 2002 LIPID SCREEN LIPID SCREEN [facility] Start: 2002 SIGMOIDOSCOPY SIGMOIDOSCOPY [facility] Start: 1976 Urine microalbumin profile [facility] Start: 1975 HEPATITIS C SCREENING HEPATITIS C SCREENING [facility] Start: 1975 HIV SCREENING HIV SCREENING [facility] Start: 1969 Adult depression screening assessment DEPRESSION SCREENING [facility] Start: 1962 COVID-19 VACCINE (1) COVID-19 VACCINE (1) [facility] Start: 04-25-1958 COVID-19 VACCINE (#1) COVID-19 VACCINE (#1) [facility] Bacteria identified in Urine by Culture URINE CULTURE Microbiology Routine Vaginal itching Dysuria 02/23/2022 9:[address] [facility] Work Phone: BACTERIAL VAGINOSIS AMPLIFICATION BACTERIAL VAGINOSIS AMPLIFICATION Lab Routine Vaginal itching 02/23/2022 9:[address] [facility] Work Phone: MARIA LUISA / TRICHOMONA S AMPLIFICATION MARIA LUISA / TRICHOMONAS AMPLIFICATION Lab Routine Vaginal itching 02/23/2022 9:[address] [facility] Work Phone: End: 02-14-2024 DXA-AXIAL SKELETON DXA-AXIAL SKELETON Radiology Routine Encounter for screening for osteoporosis 1 Occurrences starting 01/15/2023 until 02/14/2024 [facility] Work Phone: Immunizations Immunization Date Immunization Notes Care Provider Angelita land 08-19-2020 influenza virus vaccine, unspecified formulation [facility] Work Phone: [facility] 08-16-2016 pneumococcal conjuga te vaccine, 13 valent Blanquita Barbosa ELEVATOR CONSTRUCTOR.CNM Work Phone: [facility] Work Phone: Payers Date Payer Category Payer Medicare UHC AARP MEDICAR E [facility] AARP MEDICARE HMO [id number] 2022-Present [phone] [address] [address] [place] [address] HMO [id number] 2022 Medicare [id number] Social History Date Type Detail Facility [facility]: [facility]27-[facility] Work Phone: Start: 04-27-2015 Tobacco use and exposure Smokeless tobacco non-user [facility] Work Phone: Start: 02-23-2022 End: 01-15-2023 Alcohol intake Current non-drinker of alcohol (finding) [facility] Start: 1955 Sex Assigned At Not on file [facility] Start: 01-15-2023 History of Social function [facility] Start: 01-15-2023 Tobacco use panel [facility] National Score (1-100), lower number is lower risk 70 [facility] Clinical Notes 02-23-2022 to 01-16-2023 Felix Schultz RT(R) - 01/16/2023 1:00 PM Lionel Sawyer MD - 01/15/2023 9:26 AM XUBemila Ambrose Ma - 01/15/2023 9:24 AM ESTPatient Instructions Note Date & Type Note Facility 01-16-2023 Note HNO ID: [id number] Author: RT Magi(Raymond) Service: ? Author Type: Technologist Type: Progress Notes Filed: 01/16/2023 1:17 PM Note Text: Radiology Service Progress Note PATIENT NAME: Dalia Vasquez DATE OF SERVICE: January 16, 2023 TIME: 1:07 PM PATIENT IDENTITY VERIFICATION COMPLETED USING TWO (2) IDENTIFIERS: Name and Date of confirmed by patient verbally. FALL SCREENING: Has the patient had 2 falls in the last year or 1 fall with injury or currently using an Ambulatory Assistive Device (Walker, Cane, Wheelchair, Crutches, etc.)? No PATIENT GENDER DATA: Female. status: : No status: NO. PATIENT RELEVANT IMPLANT DATA REVIEWED: Not Applicable RADIOLOGY DEPARTMENT: Bone Density PERIPHERAL IV DATA: Not applicable SIGNED BY: RT Magi(R) January 16, 2023 1:07 PM [facility] 01-16-2023 History of Presen t illness Narrative Radiology Service Progress Note PATIENT NAME: Dalia Vasquez DATE OF SERVICE: January 16, 2023 TIME: 1:07 PM PATIENT IDENTITY VERIFICATION COMPLETED USING TWO (2) IDENTIFIERS: Name and Date of confirmed by patient verbally. FALL SCREENING: Has the patient had 2 falls in the last year or 1 fall with injury or currently using an Ambulatory Assistive Device (Walker, Cane, Wheelchair, Crutches, etc.)? No PATIENT GENDER DATA: Female. status: : No status: NO. PATIENT RELEVANT IMPLANT DATA REVIEWED: Not Applicable RADIOLOGY DEPARTMENT: Bone Density PERIPHERAL IV DATA: Not applicable SIGNED BY: RT Magi(R) January 16, 2023 1:07 PM documented in this encounter [facility] 01-15-2023 Note HNO ID: [id number] Author: Snow Sawyer MD Service: ? Author Type: Physician Type: Progress Notes Filed: 01/15/2023 10:29 AM Note Text: Jazmin is a 67 year old who presents for an annual gynecologic exam without complaints. Postmenopausal: Yes HRT use: No. Last Pap: 01/10/2017 normal HPV: 01/11/2017 negative History of abnormal pap: No Last mammogram: 2021 normal History of abnormal mammogram: No Sexually active: NO History of STDS: None Patient concerns for STD exposure: No. Hot flashes: No Night sweats: No Vaginal dryness: Yes Exercise: walking Diet: balanced OB History T1 L1 SAB0 IAB0 Ectopic0 Multiple0 Live Births0 Appeals Reviewer Veteran History LMP: Hysterectomy Age at Menarche: Age at First : Age at Menopause: Appeals Reviewer Veteran History Comments: Sexual Activity: Yes; Male Contraception: No contraception data on record PAST MEDICAL HISTORY Diagnosis Date Asthma PAST SURGICAL HISTORY Procedure Laterality Date COLONOSCOPY CYSTOSCOPY 08/22/2017 PAST SURGICAL HISTORY OF nasal surgery SALPINGO-OOPHORECTOMY COMPL/PRTL UNI/BI SPX Bilateral 08/22/2017 Salpingo-oophorectomy TONSILLECTOMY PRIMARY/SECONDARY Tonsillectomy VAGINAL HYSTERECTOMY UTERUS 250 GM/< 08/22/2017 [facility] FAMILY HISTORY Problem Relation Age of Onset Heart Mother valve replacement Breast Cancer Mother 93 Breast Cancer Paternal Grandmother SOCIAL HISTORY Social History Tobacco Use Smoking status: Never Smokeless tobacco: Never Substance Use Topics Alcohol use: No Drug use: No REVIEW OF SYSTEMS Abdomen: No abdominal pain, nausea, vomiting, diarrhea, or constipation. No bloating, early satiety, indigestion, or increased flatulence. Bladder: No dysuria, gross hematuria, urinary frequency, urinary urgency, or incontinence Breast: No breast lumps, nipple d/c, overlying skin changes, redness or skin retraction Allergies and current medication updated:Yes EXAM: BP 116/68 Ht 5' 3.5 (1.61m) Wt 136 lb (61.7kg) BMI 23.71 kg/(m2). GENERAL: pleasant, female in no apparent distress HEENT: Normocephalic, atraumatic, mucus membranes moist, and no lesions NECK: Supple, full range of motion, no adenopathy, and thyroid normal DERMATOLOGY: Normal, without lesions, non-icteric, and non-hirsute BREAST: soft, non-tender, symmetric, no dominant mass, normal nipple-areolar complex, no lymphadenopathy, and no nipple discharge ABDOMEN: soft, non-tender, and no masses PELVIC: external genitalia normal, normal Bartholin's glands, urethra, [place]'s glands, no vulvar lesions, cervix surgically absent, good vaginal support, physiologic discharge present, normal appearing perineal body and perianal region BIMANUAL: no adnexal masses, non-tender, and uterus surgically absent RECTOVAGINAL: deferred. NEURO: alert and oriented x3,exam grossly non-focal EXTREMITIES: normal ASSESSMENT/PLAN: 1) Health maintenance: Mammogram ordered Nutrition, exercise and routine health maintenance exams reviewed. Calcium/Vitamin D supplementation information provided. Colon cancer screening: patient to discuss with PCP BMD: ordered 2) Follow up one year or sooner as needed Snow Lehman MD [facility] 01-15-2023 Note HNO ID: [id number] Author: Berenice Ambrose Ma Service: ? Author Type: ? Type: Progress Notes Filed: 01/15/2023 10:29 AM Note Text: Hand Sole Sewer offered: Patient declines. [facility] 01-15-2023 History of Presen t illness Narrative Jazmin is a 67 year old who presents for an annual gynecologic exam without complaints. Postmenopausal: Yes HRT use: No. Last Pap: 01/10/2017 normal HPV: 01/11/2017 negative History of abnormal pap: No Last mammogram: 2021 normal History of abnormal mammogram: No Sexually active: NO History of STDS: None Patient concerns for STD exposure: No. Hot flashes: No Night sweats: No Vaginal dryness: Yes Exercise: walking Diet: balanced OB History T1 L1 SAB0 IAB0 Ectopic0 Multiple0 Live Births0 Appeals Reviewer Veteran History LMP: Hysterectomy Age at Menarche: Age at First : Age at Menopause: Appeals Reviewer Veteran History Comments: Sexual Activity: Yes; Male Contraception: No contraception data on record PAST MEDICAL HISTORY Diagnosis Date Asthma PAST SURGICAL HISTORY Procedure Laterality Date COLONOSCOPY CYSTOSCOPY 08/22/2017 PAST SURGICAL HISTORY OF nasal surgery SALPINGO-OOPHORECTOMY COMPL/PRTL UNI/BI SPX Bilateral 08/22/2017 Salpingo-oophorectomy TONSILLECTOMY PRIMARY/SECONDARY <AGE 12 Tonsillectomy VAGINAL HYSTERECTOMY UTERUS 250 GM/< 08/22/2017 [facility] FAMILY HISTORY Problem Relation Age of Onset Heart Mother valve replacement Breast Cancer Mother 93 Breast Cancer Paternal Grandmother SOCIAL HISTORY Social History Tobacco Use Smoking status: Never Smokeless tobacco: Never Substance Use Topics Alcohol use: No Drug use: No REVIEW OF SYSTEMS Abdomen: No abdominal pain, nausea, vomiting, diarrhea, or constipation. No bloating, early satiety, indigestion, or increased flatulence. Bladder: No dysuria, gross hematuria, urinary frequency, urinary urgency, or incontinence Breast: No breast lumps, nipple d/c, overlying skin changes, redness or skin retraction Allergies and current medication updated:Yes EXAM: BP 116/68 Ht 5' 3.5 (1.61m) Wt 136 lb (61.7kg) BMI 23.71 kg/(m^2). GENERAL: pleasant, female in no apparent distress HEENT: Normocephalic, atraumatic, mucus membranes moist, and no lesions NECK: Supple, full range of motion, no adenopathy, and thyroid normal DERMATOLOGY: Normal, without lesions, non-icteric, and non-hirsute BREAST: soft, non-tender, symmetric, no dominant mass, normal nipple-areolar complex, no lymphadenopathy, and no nipple discharge ABDOMEN: soft, non-tender, and no masses PELVIC: external genitalia normal, normal Bartholin's glands, urethra, [place]'s glands, no vulvar lesions, cervix surgically absent, good vaginal support, physiologic discharge present, normal appearing perineal body and perianal region BIMANUAL: no adnexal masses, non-tender, and uterus surgically absent RECTOVAGINAL: deferred. NEURO: alert and oriented x3,exam grossly non-focal EXTREMITIES: normal ASSESSMENT/PLAN: 1) Health maintenance: Mammogram ordered Nutrition, exercise and routine health maintenance exams reviewed. Calcium/Vitamin D supplementation information provided. Colon cancer screening: patient to discuss with PCP BMD: ordered 2) Follow up one year or sooner as needed Snow Lehman MD Hand Sole Sewer offered: Patient declines. documented in this encounter [facility] 02-23-2022 Note HNO ID: [id number] Author: Blanquita Barbosa APRN.CNM Service: ? Author Type: Economics Lecturer Type: Progress Notes Filed: 02/23/2022 10:36 AM Note Text: Dalia Vasquez is a 66 year old female who presents for vaginal pruritis and dryness. This has been ongoing for a while. She uses coconut oil daily to help with dryness but it is not working as well as before. Denies any vaginal discharge or odor. Some discomfort with voiding and wanted to make sure she did not have a UTI. Vaginal discharge: none. Itching: YES Dyspareunia: YES Fever/chills: No Abdominal pain: No Bladder: dysuria Bowel: No blood in stool, pain with BM, tarry stool, persistent diarrhea or constipation Any new sexual partners or concern for STD exposure: No Any history of STDs: None Does your partner have any new complaints: No Are you currently taking any medications to treat vaginitis: No- Uses coconut oil daily for dryness Do you use feminine sprays, douches or deodorants: No Menstrual cycle: no menses - postmenopausal Contraception: none Past medical, surgical, social history, medications and allergies reviewed and updated. OBJECTIVE: BP 110/68 Wt 135 lb (61.2kg) GENERAL: Well developed, well nourished in no apparent distress ABDOMEN: soft, non-tender and no masses PELVIC: normal Bartholin's glands, urethra, [place]'s glands, no vulvar lesions, atrophic changes - Labia minora fused BIMANUAL: uterus surgically absent. RECTOVAGINAL: deferred. ASSESSMENT/PLAN: 1. Vaginal itching - ICD9: 698.1, ICD10: N89.8 (primary diagnosis) - MARIA LUISA / TRICHOMONAS AMPLIFICATION - BACTERIAL VAGINOSIS AMPLIFICATION 2. Dysuria - ICD9: 788.1, ICD10: R30.0 Acute - UA negative - Send urine for culture - Patient education for prevention given 3. Vaginal atrophy - ICD9: 627.3, ICD10: N95.2 - Estrace cream- order sent to compound pharmacy [facility] RTO-as needed or for yearly exam Will notify patient of results Blanquita Barbosa APRN.CNM [facility] 02-23-2022 Instructions Blanquita Barbosa APRN.CNM - 02/23/2022 9:35 AM EDT Non-Hormonal Vaginal Lubricants & Vaginal Moisturizers Symptoms of vaginal dryness can be managed by the regular use of vaginal moisturizing agents with supplemental use of vaginal lubricants for sexual intercourse. . Use of vaginal moisturizers and lubricants alone is effective treatment for vaginal dryness or dyspareunia (pain with intercourse) in some patients. Vaginal lubrications- Vaginal lubricants are designed to reduce friction and discomfort from dryness during sexual intercourse. The lubricant is applied inside the vagina and/or on the partner's penis or fingers just before sex. Coconut, [place], Avocado or Peanut oil- natural oils are not recommended for use with latex condoms or diaphragms as they can damage the latex Astroglide- has both water and silicone based KY Jelly- water based Just like me Pure Romance Almost Naked Good Clean Love Bio Nude ultra-sensitive Pjur- silicone ID Millennium- silicone Vaginal Moisturizers- Vaginal moisturizers are intended for use routinely, typically two or three days per week, not just during sexual activity. These products are typically bioadhesives. Many moisturizer products are available in pharmacies and online. Restore- [employer].eventuosity Replens Vinnie Feminease Moist Again K-Y Liquid beads Products to assist with maintaining vaginal ph [employer] [email or web address] documented in this encounter [facility] 02-23-2022 History of Presen t illness Narrative Dalia Vasquez is a 66 year old female who presents for vaginal pruritis and dryness. This has been ongoing for a while. She uses coconut oil daily to help with dryness but it is not working as well as before. Denies any vaginal discharge or odor. Some discomfort with voiding and wanted to make sure she did not have a UTI. Vaginal discharge: none. Itching: YES Dyspareunia: YES Fever/chills: No Abdominal pain: No Bladder: dysuria Bowel: No blood in stool, pain with BM, tarry stool, persistent diarrhea or constipation Any new sexual partners or concern for STD exposure: No Any history of STDs: None Does your partner have any new complaints: No Are you currently taking any medications to treat vaginitis: No- Uses coconut oil daily for dryness Do you use feminine sprays, douches or deodorants: No Menstrual cycle: no menses - postmenopausal Contraception: none Past medical, surgical, social history, medications and allergies reviewed and updated. OBJECTIVE: BP 110/68 Wt 135 lb (61.2kg) GENERAL: Well developed, well nourished in no apparent distress ABDOMEN: soft, non-tender and no masses PELVIC: normal Bartholin's glands, urethra, [place]'s glands, no vulvar lesions, atrophic changes - Labia minora fused BIMANUAL: uterus surgically absent. RECTOVAGINAL: deferred. ASSESSMENT/PLAN: 1. Vaginal itching - ICD9: 698.1, ICD10: N89.8 (primary diagnosis) - MARIA LUISA / TRICHOMONAS AMPLIFICATION - BACTERIAL VAGINOSIS AMPLIFICATION 2. Dysuria - ICD9: 788.1, ICD10: R30.0 Acute - UA negative - Send urine for culture - Patient education for prevention given 3. Vaginal atrophy - ICD9: 627.3, ICD10: N95.2 - Estrace cream- order sent to compound pharmacy [facility] RTO-as needed or for yearly exam Will notify patient of results Blanquita Barbosa APRN.CNM documented in this encounter [facility] Diagnosis Encounter for gynecological examination (general) (routine) without abnormal findings- Primary Encounter for screening mammogram for malignant neoplasm of breast Other screening mammogram Encounter for screening for osteoporosis Special screening for osteoporosis [facility] Diagnosis Encounter for screening for osteoporosis Special screening for osteoporosis [facility]ative[facility] Diagnostic Procedure Only (Routine) - Authorized Specialty Diagnoses / Procedures Referred By Contjono t Referred To Contact [facility] Diagnoses Encounter for screening mammogram for malignant neoplasm of breast Procedures MO SCREENING W CARSON SCREENING DIGITAL BREAST TOMOSYNTHESIS BI SCREENING MAMMOGRAPHY BI 2-VIEW BREAST INC CAD Snow Eddy MD [address] [place] [address] [facility] [address] [place] [address] Referral ID Status Reason Start Date Expiration Date Visits Requested Visits Authorized [id number] Authorized Auto-Generat ed Referral 01/15/2023 02/14/2024 1 1 [facility] Summary Purpose Family History No Family History Records Found Advance Directives No Advanced Directives Records Found Additional Source Comments Source Comments (unrecognize d section and content) In the event this informatio n is protected by the Federal Confidentiality of Alcohol and Drug Abuse Patient Records regulations: The Federal rules restrict any use of the information to criminally investigate or prosecute any alcohol or drug abuse patient.[facility] the event this information is protected by the Federal Confidentiality of Alcohol and Drug Abuse Patient Records regulations: The Federal rules restrict any use of the information to criminally investigate or prosecute any alcohol or drug abuse patient.[facility] the event this information is protected by the Federal Confidentiality of Alcohol and Drug Abuse Patient Records regulations: The Federal rules restrict any use of the information to criminally investigate or prosecute any alcohol or drug abuse patient.[facility] Reason for Visit (unrecogniz ed section and content) Specialty Diagnoses / Procedures Referred By Blake shah Referred To Contact Diagnoses Procedures Self [facility] Dept Referral ID Status Reason Start Date Expiration Date Visits Requested Visits Authorized [id number] Authorized Patient Cleared - Qualified 100% FAS 02/22/2022 05/23/2022 99 99 Reason Comments Yearly Exam Care Teams (unrecognized sec tion and content) [employer] Relationship Specialty Start Date End Date Kwan Cantu MD PCP - General Family Medicine 02/07/15 Kwan Cantu MD Family Medicine 02/07/15 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 This clinical summary was aggregated from multiple sources. Caution should be exercised in using it in the provision of clinical care. This summary normalizes information from multiple sources, and as a consequence, information in this document may materially change the coding, format and clinical context of patient data. In addition, data may be omitted in some cases. CLINICAL DECISIONS SHOULD BE BASED ON THE PRIMARY CLINICAL RECORDS. [employer] [facility]. provides no warranty or guarantee of the accuracy or completeness of information in this document.
[2023-12-25 09:44] LABS: Cholesterol 171 mg/dL (200); High Density Lipoprotein 65 mg/dL; Triglycerides 92 mg/dL; Very Low Density Lipoprotein 18 mg/dL (5-40)
[2023-12-25 11:31] LABS: Hemoglobin A1c 5.2 % (3.8-5.6)
[2023-12-26 12:20] LABS: Vitamin D,25 Hydroxy 48.3 ng/mL
== END | disposition home or self-care (01) ==
LOC: LAB 08:07
PROVIDERS: PCP Nurse Practitioner Family; Referring Provider Nurse Practitioner Family; Visit Provider Nurse Practitioner Family
DX: E78.5 Hyperlipidemia, unspecified (principal); R73.01 Impaired fasting glucose; E55.9 Vitamin D deficiency, unspecified
CPT/HCPCS: 36415; 80061; 82306; 83036

== ENCOUNTER 2024-03-29 17:57 | Emergency (ER) | payer MEDICARE, SELFPAY ==
[2024-03-29 18:02] VITALS: BP 146/97; PULSE 93; RESP 18; TEMP 36.3; O2SAT 98; BMI 23.8
--- NOTE | 2024-03-29 19:04 | EDS_ITS ---
HPI History of Present Illness Chief Complaint: Chest Pain Informant: patient Narrative Narrative: 68-year-old female presenting with chest tightness. This has been an episode. She does not have any symptoms right now. She had an episode about 2 weeks ago while she was shopping and it was brief lasted a couple minutes. She saw cardiology, she follows with them because of her mother having had history of valve issues but not necessarily vascular problems, they scheduled her for a stress test for 04/24. She had another episode last night that lasted 2 minutes of upper chest tightness no other associated symptoms except for feeling stressed at that time and another episode about 1.5-2 hours prior to evaluation tonight while she was at rest and looking through her calendar and feeling stressed as well. She states whenever she walks or does activities she has no chest tightness at all and never has had that. She is on metoprolol for blood pressure and continues to be compliant with had no recent medication changes and she takes vitamins in addition to that. She was concerned about this episode and was told to come to the ER for chest pain. Denies any recent illness. No cough, no dyspnea, no presyncope or palpitations, no sweating, she did have some discomfort in her right shoulder at the time today but no other radiation. Nonpleuritic discomfort. No history of asthma or COPD. No history of smoking. [facility] Medical History Anemia Asthma Chest pain Essential (primary) hypertension Irritable bowel Syncope and collapse Home Medications vitamin E succinate 268 mg (400 unit) tablet 400 unit PO DAILY 05/11/21 [History Last Taken Unknown] metoprolol succinate 25 mg tablet,extended release 24 hr 25 mg PO BID #180 tabs 04/25/23 [Rx Last Taken Unknown] Allergy/AdvReac Type Severity Reaction Status Date / Time Sulfa (Sulfonamide Allergy Unknown Verified 03/29/24 18:02 Antibiotics) sulfamethoxazole Allergy Unknown Verified 03/29/24 18:02 [From Bactrim] trimethoprim [From Bactrim] Allergy Unknown Verified 03/29/24 18:02 erythromycin base AdvReac Severe Unknown Verified 03/29/24 18:02 Family History Father CAD (coronary artery disease) Myocardial infarction Mother CAD (coronary artery disease) Hx CABG Atrial fibrillation Surgical History H/O: hysterectomy History of nasal surgery Social History Smoking Status: Never smoker alcohol intake: never substance use type: does not use caffeine: Yes Type: coffee Number of servings: 2 what type of physical activity do you participate in: walking frequency: daily seatbelt use: always do you feel safe at home: Yes additional social history: Patient and both retired ROS ROS ED Constitutional Constitutional ED: Denies chills or fever(s) Eyes Eyes: Denies change in vision or diplopia ENT ENT ED: Denies rhinorrhea or sore throat Cardiovascular Cardiovascular: Reports as per HPI; Denies palpitations Respiratory/Chest Respiratory/Chest: Reports as per HPI and chest tightness; Denies cough or dyspnea Gastrointestinal Gastrointestinal: Denies abdominal pain, diarrhea, nausea or vomiting Genitourinary Genitourinary ED: Denies dysuria or hematuria Musculoskeletal Musculoskeletal: Denies back pain or neck pain Integumentary Denies abscess or rash Neurologic Neurologic: Denies headache(s), paresthesias or weakness Psychiatric Psychiatric: Denies suicidal ideation or suicidal thoughts EXAM Physical Exam Const Vital Signs: 03/29/24 18:02 03/29/24 18:10 03/29/24 20:01 Temperature 97.3 F L Temperature Source Temporal Pulse Rate 93 85 Respiratory Rate 18 15 Blood Pressure 146/97 H 131/85 H Blood Pressure Mean 113 100 Pulse Ox 98 99 Oxygen Delivery Method Room Air Room Air Room Air 03/29/24 22:00 Temperature Temperature Source Pulse Rate 79 Respiratory Rate 15 Blood Pressure 131/81 H Blood Pressure Mean 97 Pulse Ox 100 Oxygen Delivery Method Room Air Positive well nourished and well developed General Appearance ED: well developed and NAD HEENT Reports moist mucous membranes normocephalic and atraumatic Eyes PERRL and EOMs intact bilaterally Neck full ROM, supple and no JVD Resp normal respiratory effort and clear to auscultation bilaterally Cardio regular rate, regular rhythm and no murmurs GI non-tender and non-distended Auscultation: normoactive bowel sounds Palpation: soft Back/Spine no CVA tenderness General Back: other FROM Extremity normal to inspection General Extremety ED: Negative for edema, pulses abnormal or tenderness General Extremity: Negative for edema or pulses abnormal Neuro oriented x3, CN's II-XII intact bilaterally and no sensory deficits noted Sensorium / Orientation: awake and alert Motor Exam: strength 5/5 throughout Psych Mood & Affect: anxious Skin no rashes or lesions noted and no wounds Heart Score History: Slightly/Non-Suspicious ECG: Normal Age: >/= 65 years Risk Factors: 1 or 2 Risk Factors Score: 3 MDM MDM MDM Narrative Medical decision making narrative: This is a low risk-sounding chest discomfort. Patient has been exerting herself without any discomfort. These episodes have been relatively brief. Her EKG on my interpretation is normal. 1 view chest x-ray my interpretation is normal. Radiology in agreement. The rest of her tests are noted, she has 2 troponin measurements 2 hours apart that are less than 3. I think it would be reasonable for her to follow-up for her scheduled stress test, I do not think she needs to be admitted to have it done emergently, she is comfortable with that plan. We discussed reasons to return. Do not think she needs testing for pulmonary embolus at this time, her pulse ox is 100% and her pulse is 79. Lab Data Attestation: I reviewed the patient's lab results. Labs: Laboratory Results - last 24 hr 03/29/24 03/29/24 19:25 21:32 WBC 11.6 H RBC 4.65 Hgb 12.2 Hct 37.8 MCV 81.3 MCH 26.2 L MCHC 32.3 RDW Std Deviation 46.5 H RDW Coeff of Seven 15.8 H Plt Count 357 MPV 9.1 Immature Gran % (Auto) 0.500 Neut % (Auto) 68.2 Lymph % (Auto) 20.0 [place] % (Auto) 9.9 Eos % (Auto) 1.1 Baso % (Auto) 0.3 Absolute Neuts (auto) 7.9 H Absolute Lymphs (auto) 2.31 Nucleated RBC % 0 Sodium 140 Potassium 3.8 Chloride 106 Carbon Dioxide 28.0 Anion Gap 6 BUN 17 Creatinine 0.92 Estim Creat Clear Calc 54.13 Est GFR (MDRD) Af Amer 79 Est GFR (MDRD) Non-Af 65 BUN/Creatinine Ratio 18.6 Glucose 96 Calcium 9.2 Troponin I High Sens < 3 L < 3 L Radiography Diagnostic Testing: Clinical Impression(s) from Imaging Studies Chest X-Ray 03/29/24 19:20 IMPRESSION: No radiographic evidence of acute cardiopulmonary disease. Electronically Signed: Reese Garzon MD at 19:35 EDT Reading Location ID and State: [facility] / [place] , Service support , Rhythm Strip Rhythm Strip: Sinus Rhythm Rate: 90 Ectopy: None EKG Initial EKG: Attestation: I personally reviewed and interpreted this EKG as follows: Interpretation: Sinus Rhythm and No Acute Injury Pattern Prior EKG tracings: available for review Prior: Unchanged Discharge Plan Triage Chief Complaint: Chest Pain ED Provider: Deondre Goodwin Dx/Rx/DC Orders Clinical Impression: Non-cardiac chest pain Instructions: ED Chest Pain, Noncardiac Prescriptions: No Action vitamin E succinate 400 unit tablet 400 unit PO DAILY metoprolol succinate 25 mg tablet extended release 24 hr 25 mg PO BID Qty: 180 3RF Primary Care Provider: Annemarie Mason Referrals: Annemarie Mason, INSURANCE BILLER-C [Primary Care Provider] - 1 Week if not improving Disposition Disposition: Home, Self Care
--- NOTE | 2024-03-29 19:20 | RAD_ITS ---
EXAM: XR CHEST, 1 VIEW CLINICAL INDICATION: chest pain TECHNIQUE: Frontal view of the chest. COMPARISON: No relevant prior studies available. FINDINGS: LUNGS AND PLEURAL SPACES: Unremarkable. No consolidation or edema. No pneumothorax. No effusion. HEART: Unremarkable. Cardiac silhouette not enlarged. MEDIASTINUM: Central airways and mediastinal contour are unremarkable. BONES/JOINTS: Unremarkable. No acute fracture. SOFT TISSUES: Unremarkable. RAD/Chest 1 View (Portable) IMPRESSION: No radiographic evidence of acute cardiopulmonary disease. Electronically Signed: Reese Garzon MD at 19:35 EDT ,
[2024-03-29 19:42] LABS: Absolute Lymphocyte Count 2.31 X10^3/uL (0.83-4.51); Absolute Neutrophil Count 7.9 X10^3/uL (2.0-7.7); Basophil# 0.03 X10^3/uL; Basophil% 0.3 % (0-1); Eosinophil# 0.13 X10^3/uL; Eosinophils% 1.1 % (0-5); Hematocrit 37.8 % (37-47); Hemoglobin 12.2 g/dL (12.0-15.0); Lymphocyte # 2.31 X10^3/ul (0.83-4.51); Mean Corp Hgb Conc 32.3 g/dL (32-36); Mean Corpuscular Hgb 26.2 pg (27.0-32.0); Mean Corpuscular Volume 81.3 fL (81-99); Mean Platelet Vol. 9.1 fl (6.2-12.0); Monocyte# 1.14 X10^3/uL; Monocyte% 9.9 % (0-10); NRBC Flagged by Analyzer 0 % (0-5); Neutrophil % 68.2 % (47-70); Platelet Count 357 K/mm3 (150-450); RBC Distribution Width CV 15.8 % (11.6-14.6); RBC Distribution Width SD 46.5 fl (35.1-43.9); Red Blood Count 4.65 M/mm3 (4.2-5.4); White Blood Count 11.6 K/mm3 (4.4-11.0)
[2024-03-29 20:01] VITALS: BP 131/85; PULSE 85; RESP 15; O2SAT 99
[2024-03-29 20:01] LABS: Anion Gap 6 (5-15); BUN 17 mg/dL (7-18); BUN/Creat Ratio 18.6 RATIO (10-20); Calcium,Total 9.2 mg/dL (8.5-10.1); Chloride 106 mmol/L (98-107); Creatinine, Serum 0.92 mg/dL (0.55-1.02); EST Glomerular Filtration Rate 65 mL/min (>60); Est Glom Filt Rate - Afr Amer 79 mL/min (>60); Estimated Creatinine Clearance 54.13 ml/min; Glucose 96 mg/dL (74-106); Potassium 3.8 mmol/L (3.5-5.1); Sodium Level 140 mmol/L (136-145); Troponin-I HS (w/2H Reflex) < 3 pg/mL (3.0-54.0)
[2024-03-29 21:32] LABS: Reflex Troponin-HS? (from REC) Y
[2024-03-29 21:59] LABS: Troponin-I HS < 3 pg/mL (3.0-54.0)
[2024-03-29 22:00] VITALS: BP 131/81; PULSE 79; RESP 15; O2SAT 100
[2024-03-29 22:27] VITALS: BP 119/91; PULSE 85; RESP 22; TEMP 37; O2SAT 98
== END 2024-03-29 22:34 | disposition home or self-care (01) ==
PROVIDERS: Emergency Provider Emergency Medicine; PCP Nurse Practitioner Family; Visit Provider Emergency Medicine
DX: R07.89 Other chest pain (principal); I10 Essential (primary) hypertension; J45.909 Unspecified asthma, uncomplicated; Z79.899 Other long term (current) drug therapy
CPT/HCPCS: 71045; 80048; 84484; 85025; 93005; 99283; A4216

== ENCOUNTER → 2024-04-24 | Outpatient (CLI) | payer MEDICARE, SELFPAY ==
--- NOTE | 2024-04-24 12:39 | STRESSREP_ITS ---
Stress Test Report Exercise myocardial perfusion stress test. 68-year-old lady with a history of chest pain Stress protocol: Resting EKG demonstrates normal sinus rhythm with a rate of 88 bpm resting blood pressure is 118/70 mmHg. The patient exercised according to the regular Juan protocol for a total duration of 7 minutes and 7 seconds attaining a maximum heart rate of 142 bpm which was 92% of maximum predicted heart rate; the maximum workload was 10.1 metabolic equivalents. At rest there were no ST or T wave changes noted to suggest ischemia and at peak exercise upsloping ST changes only were noted which did not meet the criteria for ischemia. No clinical angina was noted the test was terminated due to the target heart rate being achieved/fatig ue. The peak blood pressure was 144/72 mmHg. Rate-pressure product was 18,500. Myocardial perfusion protocol. 11.1 mCi of technetium 99m sestamibi was injected at rest. The patient exercised according to regular Juan protocol for total duration of 7 minutes and 7 seconds and at peak exercise 33.3 mCi of technetium 99m sestamibi was injected stress images were obtained stress and rest images were reconstructed in comparing the short axis vertical long and horizontal long axis. Gated images were also obtained. Perfusion SPECT analysis: Review of the stress images demonstrate normal uptake of tracer noted in all areas of the myocardium. The resting images similarly demonstrate normal uptake of tracer noted in all areas of the myocardium. No areas of reversibility are noted to suggest ischemia no previous infarct was noted. Gated SPECT analysis: The gated ejection fraction is 79%. Conclusion: Normal exercise myocardial perfusion stress test at a high workload Preserved ejection fraction.
== END | disposition home or self-care (01) ==
PROVIDERS: PCP Nurse Practitioner Family; Referring Provider Physician Assistant Medical; Visit Provider Physician Assistant Medical
DX: R07.9 Chest pain, unspecified (principal); I25.10 Atherosclerotic heart disease of native coronary artery without angina pectoris
CPT/HCPCS: 78452; 93017; A9500; A4216

== ENCOUNTER → 2024-05-11 | Outpatient (CLI) | payer MEDICARE, SELFPAY ==
--- NOTE | 2024-05-11 11:52 | RAD_ITS ---
STUDY: X-RAY - UNILATERAL RIBS ( RIGHT ) WITH CHEST REASON FOR EXAM: Female, 68 years old. PAIN POST FALL TECHNIQUE - RIBS: 4 views of the right ribs. TECHNIQUE - CHEST: Single PA view of the chest. COMPARISON: None. FINDINGS - RIBS: There is a fracture of the right seventh rib. FINDINGS - CHEST: The lungs are clear and expanded. There is no demonstrated pleural abnormality. Normal size heart. Normal mediastinum and zoey. Normal visualized pulmonary arteries. Normal visualized aortic arch and descending thoracic aorta. Normal visualized thoracic spine. Normal visualized clavicles and shoulders. There is no demonstrated abnormality of the visualized soft tissue structures of the upper abdomen. RAD/Ribs Uni Min 3V w/PA Chest IMPRESSION: RIBS: Fracture of the right seventh rib. CHEST: Unremarkable x-ray examination of the chest. Electronically Signed: Bashir Fraga MD at 9:51 EDT ,
== END | disposition home or self-care (01) ==
LOC: MTRAD 11:44
PROVIDERS: PCP Nurse Practitioner Family; Referring Provider Nurse Practitioner Family; Visit Provider Nurse Practitioner Family
DX: R07.81 Pleurodynia (principal)
CPT/HCPCS: 71101

== ENCOUNTER → 2024-05-27 | Outpatient (CLI) | payer MEDICARE, SELFPAY ==
--- NOTE | 2024-05-27 12:56 | US_ITS ---
STUDY: SUPERFICIAL ULTRASOUND - LEFT INFERIOR THYROID. REASON FOR EXAM: Female, 68 years old. UPPER LEG MASS POST INJURY . Patient felt well for severe TECHNIQUE: A superficial ultrasound was performed with real-time and static dixon-scale imaging. COMPARISON: None. FINDINGS: There is a 17.5 cm x 8.3 cm x 3 cm fluid collection with septations along the distal portion of the inferior thigh medially. This corresponds to the palpable abnormality. This most likely represents a resolving hematoma. US/Ext Non Vasc Limited/Soft Tiss IMPRESSION: 17.5 cm x 0.3 cm x 3 cm fluid collection with evidence of septations corresponding to the palpable abnormality. This most likely represents a resolving hematoma from recent trauma. Electronically Signed: He Smith MD at 14:02 EDT ,
== END | disposition home or self-care (01) ==
LOC: US 12:53
PROVIDERS: PCP Nurse Practitioner Family; Referring Provider Nurse Practitioner Family; Visit Provider Nurse Practitioner Family
DX: R22.42 Localized swelling, mass and lump, left lower limb (principal)
CPT/HCPCS: 76882

== ENCOUNTER 2024-10-21 06:28 | Day surgery (SDC) | payer MEDICARE, SELFPAY ==
--- NOTE | 2024-10-21 07:15 | PRE.ANES_ITS ---
ASA Classification* ASA Classification ASA Classification: 2 Assessment & Plan Anesthesia* Anesthesia Assessment Anesthesia Assessment: Discussed sedation and/or anesthesia options, risks, benefits, and alternatives with patient/parents/legal guardian/POA. Questions invited. The patient/parents/legal guardian/POA seems to understand and agrees to proceed with anesthesia plan. Reviewed the physical assessment, medical history, allergy history and patient home medications list prior to surgery/procedure/anesthetic and documented any changes. Performed airway and anesthesia risk assessments. Anesthesia Type Anesthesia Type: MAC Anesthesia Focused Assessment* Airway Assessment Mouth opens: >3 cm Mallampati Score: II Focused Labs Anesthesia Preop lab: CBC WBC 11.6 K/mm3 (4.4-11.0) H 03/29/24 19:25 RBC 4.65 M/mm3 (4.2-5.4) 03/29/24 19:25 Hgb 12.2 g/dL (12.0-15.0) 03/29/24 19:25 Hct 37.8 % (37-47) 03/29/24 19:25 Plt Count 357 K/mm3 (150-450) 03/29/24 19:25 CHEMISTRY Potassium 3.8 mmol/L (3.5-5.1) 03/29/24 19:25 Sodium 140 mmol/L (136-145) 03/29/24 19:25 BUN 17 mg/dL (7-18) 03/29/24 19:25 Creatinine 0.92 mg/dL (0.55-1.02) 03/29/24 19:25 Glucose 96 mg/dL (74-106) 03/29/24 19:25 TSH 1.93 uIU/mL (0.358-3.74) 12/05/18 08:20 COAG Pre-Assessment Diagnosis/Proposed Procedure Planned Operative Procedure(s): COLONOSCOPY Anesthesia History Anesthesia History - visual associate: Anesthesia History - visual associate Hx Hospitalization No 10/16/24 14:45 Any Problems With Anesthesia No 10/16/24 14:45 Cholinesterase deficiency No 10/16/24 14:45 You/Your Family Experience No 10/16/24 14:45 fever (hyperthermia) with Relationship Recent Exposure to Contagious No 08/22/17 07:17 Disease Does patient have nerve No 10/16/24 14:45 stimulator Patient instructed to have device shut off --Does patient have Pacemaker or ICD? When Was Last Pacemaker Check QUESTION #4 FULL TEXT: You/Your Family Experience fever (hyperthermia) with Anesthesia Last Oral Intake Last Oral intake: Last Oral Intake NPO since Meds taken in AM with sips of water? Meds patient instructed to take am of surgery PONV PONV - visual associate: PONV - visual associate Female Yes 10/16/24 14:45 HX of Motion Sickness No 10/16/24 14:45 HX of N/V After Surgery No 10/16/24 14:45 Non-Smoker Yes 10/16/24 14:45 Duration of Surgery greater No 10/16/24 14:45 than 60 minutes Number of Risk Factors 2 10/16/24 14:45 PONV Score Moderate Risk 10/16/24 14:45 Height & Weight Height & Weight: Anesthesia: Height & Weight Height 5 ft 5 in 09/15/24 11:27 Respiratory Assessment Respiratory Assessment - visual associate: Respiratory Tract Infection Hx - visual associate Hx Respiratory Tract Infection No 10/16/24 14:45 STOP Sleep Apnea STOP Sleep Apnea - visual associate: STOP Sleep Apnea - visual associate Hx Hypertension Yes 10/16/24 14:45 Hx Sleep Apnea No 10/16/24 14:45 CPAP No 08/22/17 10:35 BIPAP No 10/26/13 08:26 Do you snore loudly (louder No 10/16/24 14:45 than talking or can be heard Do you often feel tired/ No 10/16/24 14:45 fatigued/ sleepy during daytime? Has anyone observed you stop No 10/16/24 14:45 breathing during sleep? STOP Results Negative 10/16/24 14:45 QUESTION #5 FULL TEXT : Do you snore loudly (louder than talking or can be heard through closed doors)? Tobacco Use History Tobacco Use History - visual associate: Tobacco Use History - visual associate Tobacco Use Smoking Status Never smoker 10/16/24 14:45 Hx Tobacco Use No 10/16/24 14:45 Years Smoking Packs Smoked per Day Smoking Cessation Date was within the last 15 years Hx Smoking Cessation Date Hx Smoking Cessation Counseling Hematologic Medial History Hematologic Hx - visual associate: Hematologic Medical Hx - sub acute care nurse Hx of Blood Transfusion No 10/16/24 14:45 Hx of Transfusion in last 3 No 10/16/24 14:45 Months Date of Last Transfusion (if within last 3 months) Ever experience any problems No 10/16/24 14:45 with transfusion(s)? Specify any problems Hx of Preganancy in last 3 No 10/16/24 14:45 Months Nurse Filling Out Transfusion [facility] 10/16/24 14:45 & Questions: Date: 10/16/24 10/16/24 14:45 Time: 14:54 10/16/24 14:45 Patient unable to answer at this time (ie. confused, unrespo /Reproduction History /Reproductive History - visual associate: /Reproductive Hx- visual associate Hx Now Gestational Age (in weeks): EDC: Hx Hx Para Hx Section SAB No 11/12/19 13:48 PFSH Medical History Wears glasses Hematoma Non-smoker History of stress test Cardiology follow-up encounter Anemia Asthma Essential (primary) hypertension Irritable bowel Syncope and collapse Chest pain Home Medications ?Medication ?Instructions ?Recorded ?Last Taken ?Type vitamin E succinate 268 mg (400 400 unit PO DAILY 05/11/21 Unknown History unit) tablet metoprolol succinate 25 mg 25 mg PO BID #180 tabs 06/25/24 Unknown Rx tablet,extended release 24 hr calcium 500 mg (as citrate)-vit D3 1 tab PO DAILY 09/15/24 Unknown History 12.5 mcg (500 unit) chewable tablet cholecalciferol (vitamin D3) 50 50 mcg PO QDAY 09/15/24 Unknown History mcg (2,000 unit) tablet (Vitamin D3) zinc gluconate 10 mg lozenges 10 mg PO QDAY PRN cold symptoms 09/15/24 Unknown History MILDRED ENZYMES 2 ea PO TID 10/16/24 Unknown History Allergy/AdvReac Type Severity Reaction Status Date / Time Sulfa (Sulfonamide Allergy Unknown Verified 09/15/24 11:14 Antibiotics) sulfamethoxazole (From Allergy Unknown Verified 09/15/24 11:14 Bactrim) trimethoprim (From Bactrim) Allergy Unknown Verified 09/15/24 11:14 erythromycin base AdvReac Severe Unknown Verified 09/15/24 11:14 Family History Father CAD (coronary artery disease) Myocardial infarction Mother CAD (coronary artery disease) Hx CABG Atrial fibrillation Surgical History Hx of colonoscopy History of nasal surgery H/O: hysterectomy Social History household members: spouse current occupational status: retired Smoking Status: Never smoker alcohol intake: never substance use type: does not use caffeine: Yes Type: coffee Number of servings: 2 what type of physical activity do you participate in: walking frequency: daily seatbelt use: always do you feel safe at home: Yes additional social history: Patient and both retired Review of Systems (Anesthesia) ROS Narrative System reviewed and no additional complaints, except as documented.
--- NOTE | 2024-10-21 07:30 | COLBX_PTH ---
PATIENT: MAURICIO MADRID LOC: EN U#:[id number] AGE/SX: 68/F ROOM: RE10/21/[address]: Dr. Donte Orantes DO : 1955 BED: DIS: 10/21/2024 SPEC #: [id number] RECD: 10/21/24 09:32 STATUS: PUMA GROSSMAN #: [id number] KADEEM: 10/21/24 07:[address]: Donte Orantes DEPT: SURGICAL PATHOLOGY RECD BY: Deanna Woods ENTERED: 10/21/24 11:36 SP TYPE: COLON BX TIANA DR: Annemarie Mason, TILE FINISHER-C Tissues: Sigmoid colon biopsy Procedures: Surgery Specimen Level IV HEADER OPERATION: Colonoscopy with polypectomy PRE-OP DIAGNOSIS: Encounter for screening for malignant neoplasm of colon TISSUE SUBMITTED: Sigmoid polyp MICROSCOPIC DIAGNOSIS Sigmoid colon polyp, biopsy: Fragments of tubular adenoma. AM.mr 10/22/2024 MICROSCOPIC DESCRIPTION Slides are reviewed. GROSS DESCRIPTION Received in fixative is one container labeled with the patient's name and designated Sigmoid polyp. The specimen consists of two irregular fragments of light landaverde soft tissue that in aggregate measure 0.6 x 0.6 x 0.1 cm. The specimen is totally submitted in one cassette. AM. 10/21/2024 TC:5 CPT:42546
--- NOTE | 2024-10-21 07:45 | HP.PCM_ITS ---
HPI - General General Date of Admission: 10/21/24 Date of Service: 10/21/24 Chief Complaint: Screening colonoscopy HPI Narrative MAURICIO MADRID, is a 68 F who presents today for screening colonoscopy. She had a colonoscopy 2 years ago and it was normal. She has a past medical history of hypertension and takes medicines to control that. She is not having any chest pain or shortness of breath at this time. Overall she is in very good health. [facility] Medical History Wears glasses Hematoma Non-smoker History of stress test Cardiology follow-up encounter Anemia Asthma Essential (primary) hypertension Irritable bowel Syncope and collapse Chest pain Home Medications ?Medication ?Instructions ?Recorded ?Last Taken ?Type vitamin E succinate 268 mg (400 400 unit PO DAILY 05/11/21 Unknown History unit) tablet metoprolol succinate 25 mg 25 mg PO BID #180 tabs 06/25/24 Unknown Rx tablet,extended release 24 hr calcium 500 mg (as citrate)-vit D3 1 tab PO DAILY 09/15/24 Unknown History 12.5 mcg (500 unit) chewable tablet cholecalciferol (vitamin D3) 50 50 mcg PO QDAY 09/15/24 Unknown History mcg (2,000 unit) tablet (Vitamin D3) zinc gluconate 10 mg lozenges 10 mg PO QDAY PRN cold symptoms 09/15/24 Unknown History MILDRED ENZYMES 2 ea PO TID 10/16/24 Unknown History Allergy/AdvReac Type Severity Reaction Status Date / Time Sulfa (Sulfonamide Allergy Unknown Verified 09/15/24 11:14 Antibiotics) sulfamethoxazole (From Allergy Unknown Verified 09/15/24 11:14 Bactrim) trimethoprim (From Bactrim) Allergy Unknown Verified 09/15/24 11:14 erythromycin base AdvReac Severe Unknown Verified 09/15/24 11:14 Family History Father CAD (coronary artery disease) Myocardial infarction Mother CAD (coronary artery disease) Hx CABG Atrial fibrillation Surgical History Hx of colonoscopy History of nasal surgery H/O: hysterectomy Social History household members: spouse current occupational status: retired Smoking Status: Never smoker alcohol intake: never substance use type: does not use caffeine: Yes Type: coffee Number of servings: 2 what type of physical activity do you participate in: walking frequency: daily seatbelt use: always do you feel safe at home: Yes additional social history: Patient and both retired ROS Review of Systems ROS Unobtainable: other Constitutional Constitutional: Denies fatigue, fever(s), poor appetite, weight gain or weight loss ENT HEENT: Denies mouth lesions Cardiovascular Cardiovascular: Denies abdominal bloating, abdominal edema or abdominal pain Respiratory/Chest Respiratory/Chest: Denies change in mental status, change in phlegm color, chest congestion or chest tightness Gastrointestinal Gastrointestinal: Denies belching, bloating, change in bowel habits, change in stool character, chewing difficulty, coffee ground emesis, constipation, cramping, diarrhea, dyspepsia, dysphagia, early satiety, excessive flatus, fecal incontinence, heartburn, hematemesis, hematochezia, hemorrhoids, loose stools, melena, nausea, odynophagia, rectal bleeding, tenesmus, vomiting or weight changes Genitourinary Genitourinary: Denies abdominal discomfort, burning urination or itching Musculoskeletal Musculoskeletal: Reports as per HPI; Denies muscle weakness or myalgias Integumentary Integumentary: Denies jaundice Neurologic Neurologic: Denies lack of coordination or weakness Psychiatric Psychiatric: Denies confusion, depression, memory loss, mood swings, paranoia or suicidal ideation Endocrine Endocrinology: Denies systems reviewed and no addt'l complaints, except as documented Hematologic/Lymphatic Hematologic/Lymphatic: Denies anemia, easy bleeding, easy bruising or lymphadenopathy Allergic/Immunologic Allergic/Immunologic: Denies systems reviewed and no addt'l complaints, except as documented Physical Exam Const alert, oriented x3, no apparent distress, healthy appearing and well nourished General Appearance: cooperative, comfortable, well kempt and well developed Orientation / Consciousness: awake and oriented to person HEENT Head and Scalp: normocephalic and atraumatic Face and Sinus: normal facial exam Mouth: oral and palatal mucosa normal Eyes General Eye: normal appearance of both eyes Neck full ROM Lymph Lymphatic: no lymphadenopathy noted Chest inspection of chest normal Resp normal respiratory effort and no use of accessory muscles Cardio regular rate and regular rhythm GI normal to inspection, nondistended, normoactive bowel sounds, soft to palpation, non-tender, non-distended and no masses Auscultation: normoactive bowel sounds Palpation: soft Percussion: normal to percussion Rectal Exam: visual inspection normal and normal sphincter tone no CVA tenderness Back/Spine no CVA tenderness and normal ROM Extremity normal to inspection Peripheral Pulses: Yes pulses 2+ throughout Skin no rashes or lesions noted General Skin Exam: no breakdown, elasticity normal and turgor normal Neuro oriented x3 Motor Exam: strength 5/5 throughout Psych mental status grossly normal Appearance: grossly normal Attitude: calm Activity / Motor Behavior: appropriate eye contact Speech: normal speech Thought Process: normal thought process Thought Content: normal thought content Attention / Concentration: attention grossly intact Memory / Cognition: memory grossly intact Insight: insight good Judgement: judgement good Assessment & Plan Assessment/Plan (1) Encounter for screening for malignant neoplasm of colon: PLAN: She was explained alternatives, risk and benefits include not withstanding bleeding, infection, sepsis, perforation, need for more charge and . She will have an ASA of 3.
--- NOTE | 2024-10-21 08:19 | OP.COLON_ITS ---
Patient Name: Dalia Vasquez Procedure Date: 10/21/2024 7:50 AM Date of : 1955 Age: 68 Procedure: Colonoscopy Indications: Screening for colorectal malignant neoplasm Providers: Donte Orantes DO Referring MD: Killian Barrios Medicines: Monitored Anesthesia Care Patient Profile: This is a 68 year old female. Refer to note in patient chart for documentation of history and physical. Last Colonoscopy: 10 years ago. Complications: No immediate complications. Procedure: Pre-Anesthesia Assessment: - Prior to the procedure, a History and Physical was performed, and patient medications and allergies were reviewed. The patient is competent. The risks and benefits of the procedure and the sedation options and risks were discussed with the patient. All questions were answered and informed consent was obtained. Patient identification and proposed procedure were verified by the physician in the pre-procedure area. Mental Status Examination: alert and oriented. Airway Examination: normal oropharyngeal airway and neck mobility. Respiratory Examination: clear to auscultation. CV Examination: normal. Prophylactic Antibiotics: The patient does not require prophylactic antibiotics. Prior Anticoagulants: The patient has taken no anticoagulant or antiplatelet agents. ASA Grade Assessment: II - A patient with mild systemic disease. After reviewing the risks and benefits, the patient was deemed in satisfactory condition to undergo the procedure. The anesthesia plan was to use monitored anesthesia care (MAC). Immediately prior to administration of medications, the patient was re-assessed for adequacy to receive sedatives. The heart rate, respiratory rate, oxygen saturations, blood pressure, adequacy of pulmonary ventilation, and response to care were monitored throughout the procedure. The physical status of the patient was re-assessed after the procedure. After I obtained informed consent, the scope was passed under direct vision. Throughout the procedure, the patient's blood pressure, pulse, and oxygen saturations were monitored continuously. The pediatric colonoscope was introduced through the anus and advanced to the cecum, identified by appendiceal orifice and ileocecal valve. The colonoscopy was performed without difficulty. The patient tolerated the procedure well. The quality of the bowel preparation was adequate. The ileocecal valve, appendiceal orifice, and rectum were photographed. Scope In: 7:58:53 AM Scope Withdrawal Time 0 hours 10 minutes 8 seconds Scope Out: 8:14:22 AM Total Procedure Duration Time 0 hours 15 minutes 29 seconds Findings: The perianal and digital rectal examinations were normal. A 7 mm polyp was found in the sigmoid colon. The polyp was sessile. The polyp was removed with a hot snare. Resection and retrieval were complete. Verification of patient identification for the specimen was done. Estimated blood loss was minimal. A few small-mouthed diverticula were found in the sigmoid colon, splenic flexure and ascending colon. Impression: - One 7 mm polyp in the sigmoid colon, removed with a hot snare. Resected and retrieved. - Diverticulosis in the sigmoid colon, at the splenic flexure and in the ascending colon. Recommendation: - Discharge patient to home. - Resume previous diet. - Continue present medications. - Await pathology results. - Repeat colonoscopy in 5 years for surveillance. Procedure Code(s): --- Professional --- 58201, Colonoscopy, flexible; with removal of tumor(s), polyp(s), or other lesion(s) by snare technique CPT copyright 2021 [employer]. All rights reserved. The codes documented in this report are preliminary and upon taxi dancer review may be revised to meet current compliance requirements. Donte Orantes DO 10/21/2024 8:18:51 AM This report has been signed electronically. Number of Addenda: 0 Note Initiated On: 10/21/2024 7:50 AM
--- NOTE | 2024-10-21 08:19 | OP.CCLET_ITS ---
10/21/2024 Killian Barrios Re : Colonoscopy procedure for Dalia Vasquez Dear Marlon This procedure was performed on Monday, October 21, 2024. My impressions and recommendations are as follows: Impressions : - One 7 mm polyp in the sigmoid colon, removed with a hot snare. Resected and retrieved. - Diverticulosis in the sigmoid colon, at the splenic flexure and in the ascending colon. Recommendations : - Discharge patient to home. - Resume previous diet. - Continue present medications. - Await pathology results. - Repeat colonoscopy in 5 years for surveillance. My findings are described in the full procedure note, which is enclosed. If I can be of further assistance, please feel free to contact me at . Sincerely, Donte Orantes, 10/21/2024 8:18:51 AM This report has been signed electronically.
[2024-10-21 08:22] VITALS: BP 101/67; BP 126/87; PULSE 83; RESP 18; TEMP 36.5; O2SAT 98
[2024-10-21 08:25] VITALS: BP 126/87; BP 93/57; PULSE 82; RESP 18; O2SAT 98
[2024-10-21 08:27] VITALS: BP 101/67; PULSE 82; RESP 16; TEMP 36.5; O2SAT 98
--- NOTE | 2024-10-21 08:27 | PCM.POST.ANE ---
Anesthesia: Postop Eval I Current Vital Signs Temperature: 97.7 F Pulse Rate: 82 Blood Pressure: 101/67 Respiratory Rate: 16 Pulse Ox: 98 Oxygen Delivery Method: Room Air Assessment Airway patent: Yes Spontaneous unlabored respirations: Yes Mental status: Awake and Calm nausea: No Vomiting: No Anesthesia Complication: No Fluid Hydration Crystalloid volume administer (ml): 40 Total IV fluid infused: 40 Progress Note Anesthesia document: Postop Eval 1 completed: Yes
[2024-10-21 08:29] VITALS: BP 103/73; BP 126/87; PULSE 82; RESP 20; O2SAT 97
[2024-10-21 08:35] VITALS: BP 103/73; BP 126/87; PULSE 83; RESP 18; TEMP 36.3; O2SAT 98
[2024-10-21 09:01] VITALS: BP 126/87
--- NOTE | 2024-10-21 09:57 | PCM.POSTANE2 ---
Anesthesia Postop Eval I Sum Postop Eval Completion status Anesthesia document: Postop Eval 1 completed: Yes Anesthesia Postop Eval I Summary Anesthesia Postop Eval I Summary: Anesthesia Postop Eval I: Assessment Summary Airway patent Yes 10/21/24 08:27 [email or web address] Spontaneous unlabored Yes 10/21/24 08:27 [email or web address] respirations Mental status Awake,Calm 10/21/24 08:27 [email or web address] nausea No 10/21/24 08:27 [email or web address] Vomiting No 10/21/24 08:27 [email or web address] Anesthesia Postop Eval I: Fluid Summary Crystalloid volume administer 40 10/21/24 08:27 [email or web address] (ml) Colloids volume administered ( ml) Blood Product volume administered (ml) Total IV fluid infused 40 10/21/24 08:27 [email or web address] Anesthesia Postop Eval I: Summary Notes Anesthesia Complication No 10/21/24 08:27 [email or web address] Anesthesia Complication Comment: Post-operative progress note Anesthesia: Postop Eval II Evaluation Mental status: Awake Pain Level: 0 nausea: No Vomiting: No
== END 2024-10-21 09:05 | disposition home or self-care (01) ==
LOC: EN 07:40 → AC 07:41
PROVIDERS: PCP Nurse Practitioner Family; Referring Provider Nurse Practitioner Family; Visit Provider Internal Medicine Gastroenterology
PROC: 0DJD8ZZ Inspection of Lower Intestinal Tract, Via Natural or Artificial Opening Endoscopic (ICD-10-PCS; CPT 45378; principal; 2024-10-21 07:25)
DX: Z12.11 Encounter for screening for malignant neoplasm of colon (principal); D12.5 Benign neoplasm of sigmoid colon; K57.30 Diverticulosis of large intestine without perforation or abscess without bleeding; I10 Essential (primary) hypertension; J45.909 Unspecified asthma, uncomplicated; I25.10 Atherosclerotic heart disease of native coronary artery without angina pectoris
CPT/HCPCS: 45385; 88305; A4216; J2405

== ENCOUNTER → 2024-11-05 | Outpatient (CLI) | payer MEDICARE, SELFPAY ==
[2024-11-05 08:30] LABS: Absolute Lymphocyte Count 2.08 X10^3/uL (0.83-4.51); Absolute Neutrophil Count 5.9 X10^3/uL (2.0-7.7); Basophil# 0.02 X10^3/uL; Basophil% 0.2 % (0-1); Eosinophil# 0.09 X10^3/uL; Hematocrit 40.1 % (37-47); Hemoglobin 12.4 g/dL (12.0-15.0); Lymphocyte # 2.08 X10^3/ul (0.83-4.51); Lymphocyte % 23.3 % (19-41); Mean Corp Hgb Conc 30.9 g/dL (32-36); Mean Corpuscular Hgb 25.4 pg (27.0-32.0); Mean Corpuscular Volume 82.2 fL (81-99); Mean Platelet Vol. 9.1 fl (6.2-12.0); Monocyte# 0.81 X10^3/uL; Monocyte% 9.1 % (0-10); NRBC Flagged by Analyzer 0 % (0-5); Neutrophil # 5.88 X10^3/uL (2.7-7.7); Platelet Count 378 K/mm3 (150-450); RBC Distribution Width CV 15.9 % (11.6-14.6); RBC Distribution Width SD 47.6 fl (35.1-43.9); Red Blood Count 4.88 M/mm3 (4.2-5.4); White Blood Count 8.9 K/mm3 (4.4-11.0)
[2024-11-05 09:02] LABS: ALB/GLOB Ratio 0.9 RATIO (0.9-2.4); AST(SGOT) 22 U/L (15-37); Alanine Aminotransfer ALT/SGPT 25 U/L (13-56); Albumin, Serum 3.5 g/dL (3.2-5.0); Alkaline Phosphatase 83 U/L (45-117); Anion Gap 4 (5-15); BUN 15 mg/dL (7-18); BUN/Creat Ratio 16.3 RATIO (10-20); Calcium,Total 9.2 mg/dL (8.5-10.1); Chloride 106 mmol/L (98-107); Cholesterol 185 mg/dL (200); Creatinine, Serum 0.92 mg/dL (0.55-1.02); EST Glomerular Filtration Rate 65 mL/min (>60); Est Glom Filt Rate - Afr Amer 78 mL/min (>60); Globulin 3.7 g/dL (2.2-4.2); Glucose 104 mg/dL (74-106); High Density Lipoprotein 62 mg/dL; Potassium 3.6 mmol/L (3.5-5.1); Protein, Total 7.2 g/dL (6.4-8.2); Sodium Level 139 mmol/L (136-145); Triglycerides 162 mg/dL; Very Low Density Lipoprotein 32 mg/dL (5-40)
[2024-11-05 09:06] LABS: Vitamin D,25 Hydroxy 78.3 ng/mL
== END | disposition home or self-care (01) ==
PROVIDERS: PCP Nurse Practitioner Family; Referring Provider Nurse Practitioner Family; Visit Provider Nurse Practitioner Family
DX: Z00.00 Encounter for general adult medical examination without abnormal findings (principal); E55.9 Vitamin D deficiency, unspecified
CPT/HCPCS: 36415; 80053; 80061; 82306; 85025